=== PATIENT | male | born 1945 | race African-American/Black ===

== ENCOUNTER 2023-11-20 18:33 | Emergency (ER) | payer MEDICARE, OTHER, SELFPAY ==
[2023-11-20] VITALS (8 sets, daily range): BP systolic 166–223; BP diastolic 72–105; BMI 38.9
[2023-11-20 21:04] LABS: % Basophils 1.1 % (0-2); % Eosinophils 1.1 % (0-6); % Immature Granulocytes 0.4 % (0-0.5); % Lymphocytes 37.8 % (20.5-51.1); % Monocytes 11.5 % (1.7-9.3); % Neutrophils 48.1 % (42.2-75.2); Absolute Basophils 0.1 10^3/uL (0-0.2); Absolute Eosinophils 0.1 10^3/uL (0-0.7); Absolute Lymphocytes 2.1 10^3/uL (1.2-3.4); Absolute Monocytes 0.6 10^3/uL (0.1-0.6); Absolute Neutrophils 2.6 10^3/uL (1.4-6.5); Hematocrit 41.8 % (39.0-52.0); Hemoglobin 14.8 g/dL (13.0-18.0); Mean Corp Hgb Conc. 35.4 g/dL (33.0-37.0); Mean Corpuscular Volume 90.5 fL (80.0-94.0); Mean Platelet Volume 9.7 fL (7.4-10.4); Nucleated Red Blood Cells % 0 % (-); Platelet Count 155 10^3/uL (130-400); Red Blood Cell Count 4.62 10^6/uL (4.70-6.10); Red Cell Dist. Width 12.8 % (11.5-14.5); White Blood Cell Count 5.5 10^3/uL (4.8-10.8)
[2023-11-20 21:15] LABS: ALT (SGPT) 26 U/L (0-50); AST (SGOT) 30 U/L (17-59); Alkaline Phosphatase 75 U/L (38-126); Blood Urea Nitrogen 10 mg/dl (9-20); Calcium 9.3 mg/dl (8.4-10.2); Carbon Dioxide 23 mmol/L (22-30); Chloride 107 mmol/L (98-107); Estimated Creatinine Clearance > 125 ml/min; Glucose 108 mg/dl (70-99); Potassium 3.9 mmol/L (3.5-5.1); Sodium 135 mmol/L (135-145); Total Bilirubin 1.1 mg/dl (0.2-1.3); Total Protein 7.4 g/dl (6.3-8.2); eGFR > 60.00
--- NOTE | 2023-11-20 22:17 | ED.GENMED ---
History of Present Illness
General
Chief Complaint: Blood Pressure Problem
Source: patient
Time Seen by Provider: 11/20/23 22:04
Travel History
Have you had any contact with someone who has COVID-19?: No
Do you have any symptoms of coronavirus? Fever > 100 degrees, chills, cough, shortness of breath, sore throat, loss of taste or smell, muscle aches, or headache?: No
History of Present Illness
History of Present Illness:
78-year-old male presents to the emergency room complaining of mild headache this morning prompting him to take his blood pressure. He noted it was quite high in the 200s. Patient is on multiple medications for blood pressure. He has run out of
his amlodipine 5 mg. He has not had for the past 2 days. Aside from a mild headache patient denies any associated symptoms such as chest pain, shortness of breath, back pain or abdominal pain.
Past History
Past History
ED Past Medical History: HTN, Hypercholesterolemia, Other (Crohn's disease, BPH, degenerative joint disease, chronic back pain on vicodin) and Other (BPH, divertic, crohns)
ED Past Surgical History: Bowel resection, Orthopedic (Bilateral hip replacements, left rotator cuff repair) and Other (TURP)
Social History
Tobacco: Non-smoker
Alcohol: None
Personal:
Living: with family
Employment: Retired
Family History
Family History: Diabetes and CAD
Phy Exam
Physical Exam
Physical Exam:
General: Awake, Alert, Oriented X3. No acute distress.
Vitals: Hypertensive
Head: Atraumatic
Eyes: Pupils equal, EOMI
Throat: Airway intact, no exudates
Neck: Trachea midline
Lungs: Clear and equal b/l
Heart: Regular rate, no murmurs
Abd: Soft, Nontender, No pulsatile mass
Neuro: Nonfocal
Skin: Warm, dry, no rash
Extremities: pulses equal b/l, trace edema
Course
Orders/Labs/Results
Orders:
Orders
11/20/23 20:27
ECG [Electrocardiogram (*1)] Urgent
Reason for Study: Hypertension, Benign
Cardiology Consult: Unknown
EKG- Treatment ONCE
11/20/23 20:55
Complete Blood Count/With Diff Urgent
Comprehensive Metabolic Panel Urgent
11/20/23 22:19
Amlodipine [Norvasc] 5 mg PO NOW STA
11/21/23 00:06
HydrALAZINE [Apresoline] 10 mg PO NOW STA
Abnormal Lab Results
11/20/23
20:55
RBC 4.62 L 10^6/uL
(4.70-6.10)
MCH 32.0 H pg
(27.0-31.0)
Monocytes % 11.5 H %
(1.7-9.3)
Creatinine 0.6 L mg/dL
(0.7-1.3)
Glucose 108 H mg/dl
(70-99)
11/20/23 20:55
11/20/23 20:55
Vital Signs
Initial and Last Documented VS:
Initial Vital Signs
Temp Pulse Resp BP Pulse Ox
97.9 F 58 18 223/91 96
11/20/23 18:49 11/20/23 18:49 11/20/23 18:49 11/20/23 18:49 11/20/23 18:49
Last Documented Vital Signs
Temp Pulse Resp BP Pulse Ox
97.8 F 71 20 188/71 96
11/20/23 20:32 11/21/23 01:00 11/21/23 01:00 11/21/23 01:00 11/21/23 01:00
MDM/Problems Addressed
Differential Diagnosis Includes:
Poorly controlled hypertension, medication noncompliance, progressive renal disease
MDM/Problems Addressed:
Patient's blood pressure quite elevated. As it turns out he has run out of his amlodipine. He has not taken it for the past 2 or 3 days at least. Norvasc was given which did bring his pressure down some but we also gave a dose of hydralazine p.o.
Prescription for 1 week worth of Norvasc sent as the patient does anticipate delivery from his mail-in pharmacy by that time. No evidence for any end-organ damage.
Chronic conditions affecting care: HTN
*Pulse Oximetry
Patient hypoxic: no
*EKG
Interpreted by ED Provider?: Yes
Interpretation: normal
Heart Rate: 60
Rate: normal
Rhythm: sinus
Toxey: normal axis
Interval: normal interval
QRS Pattern: normal QRS
Ischemia: no ischemia
*Sanding Machine Operator Interpretation
Rate: normal
Interpretation: normal
Rhythm: sinus
*Critical Care Note
Total Time (30-74mins, 75-104mins- exclusive of procedures): Not Applicable
ED Attending Note
-
Portions of this chart may have been created with voice recognition software.� Occasional wrong word or��sound alike� substitutions may have occurred due to the inherent limitations of voice recognition software.
Discharge Plan
Departure
Patient Disposition: Home (Routine Discharge)
Date of Disposition: 11/21/23
Time of Disposition: 01:08
Patient with high blood pressure during this ER visit?: Yes
Discharge Problem:
Hypertension
Instructions: High Blood Pressure (DC)
Prescriptions:
New
amlodipine [Norvasc] 5 mg tablet
5 mg PO DAILY Qty: 7 0RF
No Action
carvedilol [Coreg] 25 MG tablet
25 mg PO DAILY
sulfasalazine 500 MG tablet
1,000 mg PO TID
atorvastatin 10 MG tablet
10 mg PO QPM
hydrocodone-acetaminophen 1 EACH tablet
1 ea PO TIDPRN PRN (Reason: pain)
chlorthalidone 25 MG tablet
25 mg PO BID
aspirin 81 MG tablet,chewable
81 mg PO DAILY
losartan [Cozaar] 100 MG tablet
100 mg PO DAILY
cholecalciferol (vitamin D3) 2,000 UNITS tablet
2,000 unit PO BID
oseltamivir 75 MG capsule
75 mg PO BID Qty: 8 0RF
Referrals:
Costa Finnegan MD [Family Provider] -
Interventions
Interventions:
*Risk Screen - Suicide Last Done: 11/20/23 18:49
*General Assessment Last Done: 11/20/23 20:32
*Neglect/Abuse Screening Last Done: 11/20/23 18:49
*ED COVID-19 Vaccine History Last Done: 11/20/23 18:49
*Nursing Disposition Last Done: 11/21/23 01:38
ED- Cardiac Assessment Last Done: 11/20/23 20:45
ED- Neurological Assessment Last Done: 11/20/23 20:45
ED- Pulmonary Assessment Last Done: 11/20/23 20:45
[2023-11-20] MEDS: NORVASC 5 MG PO (22:36)
[2023-11-21] VITALS: BP 213/84
[2023-11-21] MEDS: APRESOLINE 10 MG PO (00:11)
[2023-11-21 00:53] VITALS: BP 191/77
[2023-11-21 01:00] VITALS: BP 188/71
== END 2023-11-21 01:38 | disposition home or self-care (01) ==
LOC: EMR 18:33
PROVIDERS: Student in an Organized Health Care Education/Training Program; EMERGENCY PHYSICIAN Emergency Medicine; FAMILY PHYSICIAN Internal Medicine
DX: I10 Essential (primary) hypertension (principal)
CPT/HCPCS: 99284; 80053; 85025; 93005

== ENCOUNTER 2023-11-23 03:09 | Emergency (ER) | payer MEDICARE, OTHER, SELFPAY ==
[2023-11-23 03:11] VITALS: BP 161/67; BMI 37.8
[2023-11-23 03:16] VITALS: BP 161/67
[2023-11-23 04:00] VITALS: BP 154/68
--- NOTE | 2023-11-23 04:10 | ED.GENMED ---
History of Present Illness
General
Chief Complaint: Blood Pressure Problem
Source: patient, ambulance crew and previous hospital records (ED visit November 20 for very similar complaint.)
Exam Limitations: none
Time Seen by Provider: 11/23/23 03:39
Nursing documentation reviewed up to this point in time: agreed with
Travel History
Have you had any contact with someone who has COVID-19?: No
Do you have any symptoms of coronavirus? Fever > 100 degrees, chills, cough, shortness of breath, sore throat, loss of taste or smell, muscle aches, or headache?: No
History of Present Illness
History of Present Illness:
This is an 78-year-old gentleman who resides at home, independently. He has longstanding history of hypertension maintained on several antihypertensive medications.
He was evaluated in this ED November 20 with complaints of elevated blood pressure accompanied with very mild headache and at that time admitted that he had inadvertently run out of his amlodipine 3 days prior. Mail order amlodipine is reportedly en
route and he should receive this sometime this week.
During that ED visit initial blood pressure reportedly 223/91. After an oral dose of amlodipine 5 mg along with an oral dose of hydralazine 10 mg, blood pressure trended down to 188/71.
A 1 week prescription for amlodipine 5 mg was provided.
Laboratory studies during that ED visit all within normal limits. EKG was unremarkable as well.
Patient states his blood pressure generally runs in the 140s to 150s over 70s to 80s.
He returns via EMS tonight when he was concerned with elevated blood pressure again at 200 systolic using his home BP cuff.
He is overall feeling well, denies headache, no chest pain or coughing or shortness of breath, no dizziness nor lightheadedness.
Upon EMS arrival, blood pressure reportedly 160 systolic and it was noted by EMS staff that patient's home blood pressure cuff is too small for his arm.
Patient states he has an appointment scheduled with his primary care physician this week.
Past History
Past History
ED Past Medical History: HTN, Hypercholesterolemia, Other (Crohn's disease, BPH, degenerative joint disease, chronic back pain on vicodin) and Other (BPH, divertic, crohns)
ED Past Surgical History: Bowel resection, Orthopedic (Bilateral hip replacements, left rotator cuff repair) and Other (TURP)
Social History
Tobacco: Non-smoker
Alcohol: None
Personal:
Living: with family
Employment: Retired
Family History
Family History: Diabetes and CAD
Phy Exam
Physical Exam
Physical Exam:
GENERAL: 78-year-old gentleman appears somewhat younger than stated age, he is bright and alert, pleasant, appears in no acute distress. Reading an E-book on his cell phone.
EYE: pupils equal and reactive. anicteric
NECK: Supple, nontender, no meningismus, no significant adenopathy.
ENT: oral mucosa is moist. No rhinorrhea.
CARDIAC: Regular rate and rhythm. no murmur.
LUNGS: Clear breath sounds bilaterally, no acute respiratory distress, no wheezes/rales/rhonchi
ABDOMEN: Soft, nondistended, without focal tenderness, normoactive BS.
NEUROLOGICAL: Alert and oriented x3, no focal neuro deficits. Gait is steady.
SKIN: Warm and dry, normal color, skin intact. No rash.
MUSCULOSKELETAL: No C/C/E. peripheral pulses are full and equal b/l. No palpable tenderness.
PSYCH: Normal and appropriate interaction.
Course
Vital Signs
Initial and Last Documented VS:
Initial Vital Signs
Temp Pulse Resp BP Pulse Ox
97.7 F 66 24 161/67 96
11/23/23 03:11 11/23/23 03:11 11/23/23 03:11 11/23/23 03:11 11/23/23 03:11
Last Documented Vital Signs
Temp Pulse Resp BP Pulse Ox
97.7 F 62 18 154/68 92
11/23/23 03:11 11/23/23 04:00 11/23/23 04:00 11/23/23 04:00 11/23/23 04:00
MDM/Problems Addressed
Differential Diagnosis Includes:
Patient with known history of hypertension presents with elevated blood pressure recorded on home BP cuff.
BP improved upon EMS arrival and has improved since arrival to the ED.
Initial blood pressure 161/67, has improved to 154/68 which appears to be near or at patient's baseline.
We did discuss that ideally systolic blood pressure should be in the 120s with diastolic less than 85.
Overall well in appearance.
Unremarkable laboratory studies as well as EKG November 20. Nothing to indicate end-organ damage.
He may be getting erroneously elevated readings with an ill fitting BP cuff and recommend he purchase a home BP monitor with large arm cuff.
I also recommend prompt follow-up with PCP for recheck and to take his blood pressure monitor with him at his next office visit to assess reliability.
At this point no indication to repeat laboratory studies nor imaging.
Continue current medications and follow-up with PCP as already scheduled.
Chronic conditions affecting care: HTN
*Pulse Oximetry
Patient hypoxic: no
*Payroll Accountant Interpretation
Rate: normal
Interpretation: normal
Rhythm: sinus
*Critical Care Note
Total Time (30-74mins, 75-104mins- exclusive of procedures): Not Applicable
ED Attending Note
-
Portions of this chart may have been created with voice recognition software.� Occasional wrong word or��sound alike� substitutions may have occurred due to the inherent limitations of voice recognition software.
Discharge Plan
Departure
Patient Disposition: Home (Routine Discharge)
Date of Disposition: 11/23/23
Time of Disposition: 04:10
Patient with high blood pressure during this ER visit?: No
Condition: Good
Discharge Problem:
Accelerated essential hypertension
Instructions: High Blood Pressure (DC)
Prescriptions:
No Action
carvedilol [Coreg] 25 MG tablet
25 mg PO DAILY
sulfasalazine 500 MG tablet
1,000 mg PO TID
atorvastatin 10 MG tablet
10 mg PO QPM
hydrocodone-acetaminophen 1 EACH tablet
1 ea PO TIDPRN PRN (Reason: pain)
chlorthalidone 25 MG tablet
25 mg PO BID
aspirin 81 MG tablet,chewable
81 mg PO DAILY
losartan [Cozaar] 100 MG tablet
100 mg PO DAILY
cholecalciferol (vitamin D3) 2,000 UNITS tablet
2,000 unit PO BID
oseltamivir 75 MG capsule
75 mg PO BID Qty: 8 0RF
amlodipine [Norvasc] 5 mg tablet
5 mg PO DAILY Qty: 7 0RF
Referrals:
Costa Finnegan MD [Family Provider] - Call in 1-3 days for appt
Activity Restrictions/Additional Instructions:
Touch base with your primary care physician this week for blood pressure recheck. Take your home blood pressure monitor with you to that appointment to assess its reliability.
We do recommend a large arm cuff for more accurate blood pressure reading.
Interventions
Interventions:
*Risk Screen - Suicide Last Done: 11/23/23 03:11
*General Assessment Last Done: 11/23/23 03:11
ED- Fall Risk Assessment Last Done: 11/23/23 04:08
*ED COVID-19 Vaccine History Last Done: 11/23/23 03:11
ED- Cardiac Assessment Last Done: 11/23/23 04:08
ED- Neurological Assessment Last Done: 11/23/23 04:08
ED- Pulmonary Assessment Last Done: 11/23/23 04:08
== END 2023-11-23 04:44 | disposition home or self-care (01) ==
LOC: EMR 03:09
PROVIDERS: EMERGENCY PHYSICIAN Emergency Medicine; FAMILY PHYSICIAN Internal Medicine
DX: I10 Essential (primary) hypertension (principal)
CPT/HCPCS: 99283

== ENCOUNTER → 2024-01-06 09:20 | Outpatient (REF) | payer MEDICARE, OTHER, SELFPAY ==
[2024-01-06 12:17] LABS: Urine Albumin Trace (Neg - Trace); Urine Bilirubin 1+ (Negative); Urine Character Clear (Clear); Urine Color Yellow; Urine Glucose Negative (Negative); Urine Ketone Negative (Negative); Urine Leukocyte Negative (Negative); Urine Nitrite Negative (Negative); Urine Occult Blood Negative (Negative); Urine Specific Gravity 1.015 (<1.030); Urine Urobilinogen Negative (Neg - 1+); Urine pH 6.5 (5.0-9.0)
[2024-01-06 12:42] LABS: ALT (SGPT) 20 U/L (0-50); AST (SGOT) 22 U/L (17-59); Albumin 4.2 g/dl (3.5-5.0); Alkaline Phosphatase 62 U/L (38-126); Blood Urea Nitrogen 13 mg/dl (9-20); Calcium 9.5 mg/dl (8.4-10.2); Carbon Dioxide 25 mmol/L (22-30); Chloride 105 mmol/L (98-107); Glucose 111 mg/dl (70-99); HDL Cholesterol 44 mg/dl; LDL Cholesterol, Calculated 77 mg/dl; Sodium 139 mmol/L (135-145); Total Cholesterol 132 mg/dl (50-199); Total Protein 7.2 g/dl (6.3-8.2); Triglyceride 59 mg/dl (10-149); Very Low Density Lipoprotein 11 mg/dl (0-30); eGFR > 60.00
[2024-01-06 12:46] LABS: Vitamin D, 25-OH*** 33.5 ng/mL (30-80)
[2024-01-06 12:48] LABS: % Basophils 0.5 % (0-2); % Eosinophils 0.5 % (0-6); % Immature Granulocytes 0.4 % (0-0.5); % Lymphocytes 24.7 % (20.5-51.1); % Monocytes 7.5 % (1.7-9.3); % Neutrophils 66.4 % (42.2-75.2); Absolute Lymphocytes 1.8 10^3/uL (1.2-3.4); Absolute Monocytes 0.6 10^3/uL (0.1-0.6); Absolute Neutrophils 4.9 10^3/uL (1.4-6.5); Hematocrit 42.1 % (39.0-52.0); Hemoglobin 14.1 g/dL (13.0-18.0); Mean Corp Hgb Conc. 33.5 g/dL (33.0-37.0); Mean Corpuscular Hgb 30.9 pg (27.0-31.0); Mean Corpuscular Volume 92.3 fL (80.0-94.0); Mean Platelet Volume 10.5 fL (7.4-10.4); Nucleated Red Blood Cells % 0 % (-); Platelet Count 178 10^3/uL (130-400); Red Blood Cell Count 4.56 10^6/uL (4.70-6.10); Red Cell Dist. Width 13.3 % (11.5-14.5); White Blood Cell Count 7.5 10^3/uL (4.8-10.8)
[2024-01-06 12:59] LABS: PSA, Total - Diagnostic 1.87 ng/ml (0.0-4.0)
[2024-01-06 14:30] LABS: Glycohemoglobin (HgbA1c) 5.3 % (4.0-5.6)
== END ==
LOC: HWLAB 09:20
PROVIDERS: ATTENDING PHYSICIAN Internal Medicine; FAMILY PHYSICIAN Internal Medicine; REFERRING PHYSICIAN Internal Medicine Interventional Cardiology
DX: I10 Essential (primary) hypertension (principal); R04.0 Epistaxis; K50.119 Crohn's disease of large intestine with unspecified complications; N40.1 Benign prostatic hyperplasia with lower urinary tract symptoms; N13.8 Other obstructive and reflux uropathy; E78.2 Mixed hyperlipidemia; R73.9 Hyperglycemia, unspecified
CPT/HCPCS: 36415; 80053; 80061; 81003; 82306; 83036; 84153; 84443; 85025

== ENCOUNTER → 2024-01-27 14:43 | Outpatient (REF) | payer MEDICARE, OTHER, SELFPAY | LOC: RAD 14:43 | PROVIDERS: ATTENDING PHYSICIAN Internal Medicine Interventional Cardiology; FAMILY PHYSICIAN Internal Medicine | DX: N28.9 Disorder of kidney and ureter, unspecified (principal); I10 Essential (primary) hypertension | CPT/HCPCS: 93975 ==

== ENCOUNTER → 2024-03-08 08:09 | Outpatient (REF) | payer MEDICARE, OTHER, SELFPAY ==
[2024-03-08 09:49] LABS: Blood Urea Nitrogen 11 mg/dl (9-20); Calcium 9.3 mg/dl (8.4-10.2); Carbon Dioxide 25 mmol/L (22-30); Chloride 106 mmol/L (98-107); Glucose 111 mg/dl (70-99); Potassium 3.9 mmol/L (3.5-5.1); Sodium 139 mmol/L (135-145); eGFR > 60.00
== END ==
LOC: HWLAB 08:09
PROVIDERS: ATTENDING PHYSICIAN Specialist; FAMILY PHYSICIAN Internal Medicine
DX: I10 Essential (primary) hypertension (principal)
CPT/HCPCS: 36415; 80048

== ENCOUNTER → 2024-04-12 08:15 | Outpatient (REF) | payer MEDICARE, OTHER, SELFPAY ==
[2024-04-12 10:06] LABS: Blood Urea Nitrogen 17 mg/dl (9-20); Calcium 9.8 mg/dl (8.4-10.2); Carbon Dioxide 23 mmol/L (22-30); Chloride 104 mmol/L (98-107); Glucose 111 mg/dl (70-99); Potassium 4.3 mmol/L (3.5-5.1); Sodium 138 mmol/L (135-145); eGFR > 60.00
== END ==
LOC: HWLAB 08:15
PROVIDERS: ATTENDING PHYSICIAN Specialist; FAMILY PHYSICIAN Internal Medicine
DX: I10 Essential (primary) hypertension (principal)
CPT/HCPCS: 36415; 80048

== ENCOUNTER → 2024-05-19 06:46 | Outpatient (REF) | payer MEDICARE, OTHER, SELFPAY | LOC: RAD 06:46 | PROVIDERS: ATTENDING PHYSICIAN Specialist; FAMILY PHYSICIAN Internal Medicine | DX: I10 Essential (primary) hypertension (principal) | CPT/HCPCS: 93931 ==

== ENCOUNTER → 2024-08-02 10:14 | Outpatient (REF) | payer MEDICARE, OTHER, SELFPAY ==
[2024-08-02 13:45] LABS: Blood Urea Nitrogen 11 mg/dl (9-20); Calcium 9.5 mg/dl (8.4-10.2); Carbon Dioxide 28 mmol/L (22-30); Chloride 104 mmol/L (98-107); Glucose 102 mg/dl (70-99); Potassium 3.6 mmol/L (3.5-5.1); Sodium 143 mmol/L (135-145); eGFR > 60.00
== END ==
LOC: HWLAB 10:14
PROVIDERS: ATTENDING PHYSICIAN Specialist; FAMILY PHYSICIAN Internal Medicine
DX: I10 Essential (primary) hypertension (principal)
CPT/HCPCS: 36415; 80048

== ENCOUNTER → 2024-08-11 09:00 | Outpatient (REF) | payer MEDICARE, OTHER, SELFPAY ==
[2024-08-11 12:46] LABS: PSA, Total - Diagnostic 1.65 ng/ml (0.0-4.0)
== END ==
LOC: HWLAB 09:00
PROVIDERS: ATTENDING PHYSICIAN Urology; FAMILY PHYSICIAN Internal Medicine
DX: N40.1 Benign prostatic hyperplasia with lower urinary tract symptoms (principal)
CPT/HCPCS: 84153

== ENCOUNTER → 2024-11-23 10:26 | Outpatient (REF) | payer MEDICARE, OTHER, SELFPAY ==
[2024-11-23 15:17] LABS: Blood Urea Nitrogen 10 mg/dl (9-20); Calcium 9.4 mg/dl (8.4-10.2); Carbon Dioxide 25 mmol/L (22-30); Chloride 103 mmol/L (98-107); Glucose 90 mg/dl (70-99); HDL Cholesterol 48 mg/dl; LDL Cholesterol, Calculated 75 mg/dl; Sodium 138 mmol/L (135-145); Total Cholesterol 132 mg/dl (50-199); Triglyceride 47 mg/dl (10-149); Very Low Density Lipoprotein 9 mg/dl (0-30); eGFR > 60.00
== END ==
LOC: HWLAB 10:26
PROVIDERS: ATTENDING PHYSICIAN Internal Medicine Interventional Cardiology; FAMILY PHYSICIAN Internal Medicine; REFERRING PHYSICIAN Specialist
DX: E78.2 Mixed hyperlipidemia (principal); I10 Essential (primary) hypertension; N28.9 Disorder of kidney and ureter, unspecified
CPT/HCPCS: 36415; 80048; 80061

== ENCOUNTER → 2025-01-23 12:19 | Outpatient (REF) | payer MEDICARE, OTHER, SELFPAY ==
[2025-01-23 16:43] LABS: Blood Urea Nitrogen 8 mg/dl (9-20); Calcium 9.4 mg/dl (8.4-10.2); Carbon Dioxide 27 mmol/L (22-30); Chloride 107 mmol/L (98-107); Glucose 94 mg/dl (70-99); Potassium 4.1 mmol/L (3.5-5.1); Sodium 142 mmol/L (135-145); eGFR > 60.00
== END ==
LOC: HWLAB 12:19
PROVIDERS: ATTENDING PHYSICIAN Specialist; FAMILY PHYSICIAN Internal Medicine
DX: I10 Essential (primary) hypertension (principal); E03.9 Hypothyroidism, unspecified; E78.2 Mixed hyperlipidemia
CPT/HCPCS: 36415; 80048

== ENCOUNTER → 2025-02-17 08:13 | Outpatient (REF) | payer MEDICARE, OTHER, SELFPAY ==
[2025-02-17 09:12] LABS: % Basophils 0.5 % (0-2); % Eosinophils 1.2 % (0-6); % Immature Granulocytes 0.3 % (0-0.5); % Lymphocytes 25.1 % (20.5-51.1); % Monocytes 10.7 % (1.7-9.3); % Neutrophils 62.2 % (42.2-75.2); Absolute Eosinophils 0.1 10^3/uL (0-0.7); Absolute Lymphocytes 1.5 10^3/uL (1.2-3.4); Absolute Monocytes 0.6 10^3/uL (0.1-0.6); Absolute Neutrophils 3.7 10^3/uL (1.4-6.5); Hematocrit 37.6 % (39.0-52.0); Hemoglobin 12.8 g/dL (13.0-18.0); Mean Corpuscular Hgb 31.8 pg (27.0-31.0); Mean Corpuscular Volume 93.5 fL (80.0-94.0); Nucleated Red Blood Cells % 0 % (-); Platelet Count 167 10^3/uL (130-400); Red Blood Cell Count 4.02 10^6/uL (4.70-6.10); Red Cell Dist. Width 13.2 % (11.5-14.5); White Blood Cell Count 5.9 10^3/uL (4.8-10.8)
== END ==
LOC: REG 08:13
PROVIDERS: ATTENDING PHYSICIAN Internal Medicine
DX: J98.4 Other disorders of lung (principal)
CPT/HCPCS: 36415; 71046; 85025

== ENCOUNTER 2025-03-14 09:00 | Outpatient (RCR) | payer MEDICARE, OTHER, SELFPAY | END 2025-03-17 10:41 | disposition home or self-care (01) | LOC: PURB 09:00 | PROVIDERS: ATTENDING PHYSICIAN Internal Medicine; FAMILY PHYSICIAN Internal Medicine | DX: J44.9 Chronic obstructive pulmonary disease, unspecified (principal); J98.4 Other disorders of lung | CPT/HCPCS: G0237 ==

== ENCOUNTER 2025-04-13 09:30 | Outpatient (RCR) | payer MEDICARE, OTHER, SELFPAY | END 2025-04-17 09:38 | disposition home or self-care (01) | LOC: PURB 09:30 | PROVIDERS: ATTENDING PHYSICIAN Internal Medicine; FAMILY PHYSICIAN Internal Medicine | DX: J44.9 Chronic obstructive pulmonary disease, unspecified (principal); J98.4 Other disorders of lung | CPT/HCPCS: G0239 ==

== ENCOUNTER → 2025-05-01 12:17 | Outpatient (REF) | payer MEDICARE, OTHER, SELFPAY ==
[2025-05-01 16:13] LABS: Hematocrit 34.7 % (39.0-52.0); Hemoglobin 11.6 g/dL (13.0-18.0); Mean Corp Hgb Conc. 33.4 g/dL (33.0-37.0); Mean Corpuscular Volume 94.3 fL (80.0-94.0); Nucleated Red Blood Cells % 0 % (-); Platelet Count 155 10^3/uL (130-400); Red Cell Dist. Width 13.4 % (11.5-14.5)
[2025-05-01 16:27] LABS: Blood Urea Nitrogen 9 mg/dl (9-20); Calcium 9.3 mg/dl (8.4-10.2); Carbon Dioxide 28 mmol/L (22-30); Chloride 108 mmol/L (98-107); Glucose 97 mg/dl (70-99); Potassium 3.9 mmol/L (3.5-5.1); Sodium 138 mmol/L (135-145); eGFR > 60.00
[2025-05-01 20:37] LABS: Microalbumin, Random Urine 0.9 mg/dl (0.6-1.7)
[2025-05-02 09:08] LABS: Microalb - Urine Creatinine 134.600 mg/dl
== END ==
LOC: HWLAB 12:17
PROVIDERS: ATTENDING PHYSICIAN Specialist; FAMILY PHYSICIAN Internal Medicine
DX: I10 Essential (primary) hypertension (principal); N28.9 Disorder of kidney and ureter, unspecified
CPT/HCPCS: 36415; 80048; 82043; 82570; 85025

== ENCOUNTER 2025-05-18 09:30 | Outpatient (RCR) | payer MEDICARE, OTHER, SELFPAY | END 2025-05-18 23:59 | disposition home or self-care (01) | LOC: PURB 09:30 | PROVIDERS: ATTENDING PHYSICIAN Internal Medicine; FAMILY PHYSICIAN Internal Medicine | DX: J44.9 Chronic obstructive pulmonary disease, unspecified (principal); J98.4 Other disorders of lung; R06.09 Other forms of dyspnea; R06.83 Snoring; G47.19 Other hypersomnia; Z87.891 Personal history of nicotine dependence | CPT/HCPCS: G0239 ==

== ENCOUNTER 2025-06-06 09:30 | Outpatient (RCR) | payer MEDICARE, OTHER, SELFPAY | END 2025-06-07 09:52 | disposition home or self-care (01) | LOC: PURB 09:30 | PROVIDERS: ATTENDING PHYSICIAN Internal Medicine; FAMILY PHYSICIAN Internal Medicine | DX: J44.9 Chronic obstructive pulmonary disease, unspecified (principal); R06.09 Other forms of dyspnea; J98.4 Other disorders of lung; R06.83 Snoring; G47.19 Other hypersomnia; Z87.891 Personal history of nicotine dependence | CPT/HCPCS: G0239 ==

== ENCOUNTER → 2025-07-03 08:13 | Outpatient (REF) | payer MEDICARE, OTHER, SELFPAY ==
[2025-07-03 10:53] LABS: Hematocrit 36.3 % (39.0-52.0); Hemoglobin 12.0 g/dL (13.0-18.0); Mean Corp Hgb Conc. 33.1 g/dL (33.0-37.0); Mean Corpuscular Volume 96.0 fL (80.0-94.0); Nucleated Red Blood Cells % 0 % (-); Platelet Count 157 10^3/uL (130-400); Red Cell Dist. Width 13.1 % (11.5-14.5)
[2025-07-03 11:04] LABS: Blood Urea Nitrogen 8 mg/dl (9-20); Calcium 9.3 mg/dl (8.4-10.2); Carbon Dioxide 28 mmol/L (22-30); Chloride 107 mmol/L (98-107); Glucose 98 mg/dl (70-99); Potassium 4.0 mmol/L (3.5-5.1); Sodium 141 mmol/L (135-145); eGFR > 60.00
== END ==
LOC: HWRAD 08:13
PROVIDERS: ATTENDING PHYSICIAN Specialist; FAMILY PHYSICIAN Internal Medicine
DX: I10 Essential (primary) hypertension (principal); N28.9 Disorder of kidney and ureter, unspecified; I25.118 Atherosclerotic heart disease of native coronary artery with other forms of angina pectoris; K50.119 Crohn's disease of large intestine with unspecified complications; M54.16 Radiculopathy, lumbar region
CPT/HCPCS: 36415; 72110; 80048; 85025

== ENCOUNTER → 2025-08-01 10:43 | Outpatient (REF) | payer MEDICARE, OTHER, SELFPAY ==
[2025-08-01 13:21] LABS: PSA, Total - Diagnostic 1.33 ng/ml (0.0-4.0)
== END ==
LOC: HWLAB 10:43
PROVIDERS: ATTENDING PHYSICIAN Urology; FAMILY PHYSICIAN Internal Medicine; OTHER PHYSICIAN Specialist; REFERRING PHYSICIAN Internal Medicine Interventional Cardiology
DX: N40.1 Benign prostatic hyperplasia with lower urinary tract symptoms (principal)
CPT/HCPCS: 36415; 84153

== ENCOUNTER → 2025-08-03 20:22 | Outpatient (REF) | payer MEDICARE, OTHER, SELFPAY | LOC: MRI 20:22 | PROVIDERS: ATTENDING PHYSICIAN Internal Medicine | DX: M54.16 Radiculopathy, lumbar region (principal) | CPT/HCPCS: 72148 ==

== ENCOUNTER → 2025-09-01 07:52 | Outpatient (REF) | payer MEDICARE, OTHER, SELFPAY ==
[2025-09-01 10:07] LABS: ALT (SGPT) 16 U/L (0-50); AST (SGOT) 18 U/L (17-59); Albumin 3.9 g/dl (3.5-5.0); Alkaline Phosphatase 55 U/L (38-126); Blood Urea Nitrogen 9 mg/dl (9-20); Calcium 9.2 mg/dl (8.4-10.2); Carbon Dioxide 29 mmol/L (22-30); Chloride 106 mmol/L (98-107); Glucose 97 mg/dl (70-99); HDL Cholesterol 49 mg/dl; LDL Cholesterol, Calculated 60 mg/dl; Potassium 3.9 mmol/L (3.5-5.1); Sodium 136 mmol/L (135-145); Total Protein 7.2 g/dl (6.3-8.2); Very Low Density Lipoprotein 8 mg/dl (0-30); eGFR > 60.00
== END ==
LOC: HWRAD 07:52
PROVIDERS: ATTENDING PHYSICIAN Urology; FAMILY PHYSICIAN Internal Medicine; OTHER PHYSICIAN Internal Medicine Interventional Cardiology; REFERRING PHYSICIAN Specialist
DX: R31.1 Benign essential microscopic hematuria (principal); I10 Essential (primary) hypertension; E78.2 Mixed hyperlipidemia
CPT/HCPCS: 36415; 76775; 80053; 80061

== ENCOUNTER 2025-09-15 03:28 | Inpatient (IN) | payer MEDICARE, OTHER, SELFPAY ==
[2025-09-14 23:14] VITALS: BP 188/70
[2025-09-14 23:16] VITALS: BMI 31.2
[2025-09-14 23:33] LABS: Hematocrit 35.5 % (39.0-52.0); Hemoglobin 12.1 g/dL (13.0-18.0); Mean Corp Hgb Conc. 34.1 g/dL (33.0-37.0); Mean Corpuscular Volume 91.0 fL (80.0-94.0); Nucleated Red Blood Cells % 0 % (-); Platelet Count 174 10^3/uL (130-400); Red Cell Dist. Width 13.2 % (11.5-14.5)
[2025-09-14 23:54] LABS: ALT (SGPT) 17 U/L (0-50); AST (SGOT) 29 U/L (17-59); Albumin 4.1 g/dl (3.5-5.0); Alkaline Phosphatase 53 U/L (38-126); Blood Urea Nitrogen 13 mg/dl (9-20); Calcium 9.3 mg/dl (8.4-10.2); Carbon Dioxide 26 mmol/L (22-30); Chloride 107 mmol/L (98-107); Estimated Creatinine Clearance 96 ml/min; Glucose 135 mg/dl (70-99); Lipase 22 U/L (23-300); Potassium 4.0 mmol/L (3.5-5.1); Sodium 137 mmol/L (135-145); Total Protein 7.6 g/dl (6.3-8.2); eGFR > 60.00
--- NOTE | 2025-09-14 23:59 | ED.GENMED ---
History of Present Illness
General
Chief Complaint: Flank Pain
Source: patient
Exam Limitations: none
Time Seen by Provider: 09/14/25 23:30
Nursing documentation reviewed up to this point in time: agreed with
History of Present Illness
History of Present Illness:
Patient with history of Crohn's disease with bowel resection, presents ED secondary to persistent left-sided abdominal pain associated with nausea and vomiting, started approxi-5 hours ago, while he was at home. Abdominal pain described as sharp,
located along left flank/back, radiating to the front, without any alleviating or exacerbating factors. Denies trauma. Denies fever or chills. Denies diarrhea. Denies previous history of similar symptoms. Denies recent change bowel habits.
Denies recent illness. Denies recent change in medications or diet. Denies difficulty with urination. Denies previous history of kidney stones.
Past History
Past History
ED Past Medical History: HTN, Hypercholesterolemia, Other (Crohn's disease, BPH, degenerative joint disease, chronic back pain on vicodin) and Other (BPH, divertic, crohns)
ED Past Surgical History: Bowel resection, Orthopedic (Bilateral hip replacements, left rotator cuff repair) and Other (TURP)
Social History
Tobacco: Non-smoker
Alcohol: None
Personal:
Living: with family
Employment: Retired
Family History
Family History: Diabetes and CAD
Review of Systems
Review of Systems
Allergies reviewed?: Yes
All Other Systems: ROS reviewed and negative except as documented in HPI and ROS
Constitutional: Reports no symptoms
Respiratory: Reports no symptoms
Cardiac: Reports no symptoms
ABD/GI: Reports abdominal pain, nausea and vomiting
Musculoskeletal: Reports no symptoms
Skin: Reports no symptoms
Neurological: Reports no symptoms
Phy Exam
Physical Exam
Physical Exam:
Physical Exam
General: mild painful distress, not acutely ill. afebrile
Head: nc/at. eomi
Neck: supple. normal range of motion
Heart: s1/s2 regular rate and rhythm
Lungs: no acute respiratory distress. clear bilaterally
Abdomen: normal bowel sounds. no distention. mild left sided abdominal tenderness to palpation
Neuro: alert and oriented x 3. no focal neurological deficits
Skin: no rash
Psychiatric: well kept. interactive and cooperative
Extremities: no edema. no calf tenderness.
Course
Orders/Labs/Results
Orders:
Orders
09/14/25 23:15
EKG [Electrocardiogram (*1)] Urgent
Reason for Study: Abdominal Pain
Urinalysis Reflex To Culture Urgent
Date Specimen was Collected: 09/14/25
Time Specimen was Collected: 23:16
09/14/25 23:16
EKG- Treatment ONCE
09/14/25 23:20
Complete Blood Count/With Diff Urgent
Comprehensive Metabolic Panel Urgent
Lipase Urgent
Troponin I Urgent
09/14/25 23:55
HYDROmorphone [Dilaudid] 0.5 mg IV NOW STA
Ondansetron Injectable [Zofran] 4 mg IV NOW STA
09/14/25 23:58
0.9% Sodium Chloride 500 ml [Nss] 500 ml IV BOLUS
CR Obstruct Series W/pa Chest Urgent
Comment:
Reason For Exam: left sided abd pain
09/15/25 00:34
CT Abd/pelvis W Iv Cont Urgent
Comment:
Reason For Exam: LLQ pain
09/15/25 00:40
HYDROmorphone [Dilaudid] 0.5 mg IV NOW STA
Ketorolac [Toradol] 15 mg IV NOW STA
09/15/25 01:11
Urine Microscopic Reflex Cult Urgent
Urine Culture Urgent
DANIEL Source: U
Specimen Description:
Date Specimen was Collected: 09/14/25
Time Specimen was Collected: 23:16
09/15/25 02:03
CefTRIAXone [Rocephin] 1,000 mg IV NOW STA
09/15/25 02:12
Lactate Level [Lactic Acid] Urgent
Blood Culture Q30M
DANIEL Source: Blood/Venous
Specimen Description:
Blood Culture Q30M
DANIEL Source: Blood/Venous
Specimen Description:
09/15/25 02:39
HYDROmorphone [Dilaudid] 0.5 mg IV NOW STA
09/15/25 03:00
0.9% Sodium Chloride 500 ml [Nss] 500 ml IV 100 mls/hr
09/15/25 03:09
Admit/Transfer Patient As Directed
Co-Sign Provider:
Level of Care: Inpatient admission
Assign to:: Medical/Surgical
Physician / Group: Dragan
Diagnosis: Kidney Stone
Reason for Hospitalization: Kidney Stone
Expected length of stay greater than two midnights?: Yes
ELOS- Estimated Length of Stay in days: 2
I certify the patient meets the requirements for IP care: Yes
PRN Pain Medication Management As Directed
May give lesser potent ordered pain med per pt: Yes
preference::
Protocol:: Medication orders for pain may be administered in a
manner that supports deferring to patient preference
when the pt is:
- Requesting an ordered lesser potent pain medication.
Least to most potent pain medications are defined
as: acetaminophen < NSAID < tramadol < opioids
(morphine, oxycodone, hydromorphone).
- Requesting a lesser dose of the same medication IF
ORDERED.
- Requesting a less intrusive route of administration
if both routes are prescribed by the provider (PO <
IV).
09/15/25 03:11
Code Status As Directed
Resuscitation Status: Full Code
09/15/25 03:58
Acetaminophen [Tylenol] 650 mg PO Q4HPRN PRN
HYDROmorphone [Dilaudid] 0.5 mg IV Q4HPRN PRN
Hydrocodone 5/APAP 325 [[place] 5/325] 1 tablet PO TIDPRN PRN moderate pain moderate pain
09/15/25 03:58
UROLOGY CONSULT Routine
Consulting Provider: Vince Morales
Was physician already notified: Yes
Comment: [facility]
Activity As Directed
Activity Level: Ambulate
With Assistance
Bladder Scan As Directed
Follow Bladder Retention/Intermittent Cath Algorithm?: Yes
PRN if no void in __ hours: 6
Frequency: Per Retention Algorithm
If Bladder Scan Result >: 400
then:: Straight cath
I/O [Intake/ Output] As Directed
Frequency: Per unit guidelines
Pneumatic Compression Sleeves As Directed
Type: Knee high
Straight Cath As Directed
Frequency: Per Retention Algorithm
Additional Instructions: straight cath as needed per acute urinary retention algorithm for 24 hrs
Additional Instructions: for bladder scan greater than 400 mL
Strain Urine As Directed
Vital Signs As Directed
Frequency: Per unit guidelines
Oxygen Therapy [O2 Therapy] [RESP] Routine
Titrate/Wean O2 to maintain O2 sat greater than (%): 94
DX Deep Vein Thrombosis Video Routine
09/15/25 Breakfast
NPO
Allow oral meds: Yes
Allow clear liquids: Sips of Clears
09/15/25 07:34
Basic Metabolic Panel IN AM
Complete Blood Count/No Diff IN AM
09/15/25 08:00
Amlodipine [Norvasc] 5 mg PO BID
Carvedilol [Coreg] 25 mg PO BID
Cholecalciferol (Vitamin D3) [VITAMIN D3 (cholecalciferol)] 50 mcg PO BID
Clonidine [Catapres] 0.1 mg PO DAILY
Furosemide [Lasix] 40 mg PO DAILY
Spironolactone [Aldactone] 100 mg PO DAILY
Sulfasalazine [Azulfidine] 1,000 mg PO TID
Tamsulosin [Flomax] 0.4 mg PO DAILY
Valsartan [Diovan] 320 mg PO DAILY
09/15/25 18:00
Atorvastatin [Lipitor] 40 mg PO QPM
09/15/25 22:00
Docusate W/Senna [Senokot-S] 1 tablet PO HS
09/16/25 04:00
CefTRIAXone [Rocephin] 1,000 mg IV Q24H
Abnormal Lab Results
09/14/25 09/15/25
23:20 01:11
RBC 3.90 L 10^6/uL
(4.70-6.10)
Hgb 12.1 L g/dL
(13.0-18.0)
Hct 35.5 L %
(39.0-52.0)
Absolute Neuts (auto) 8.4 H 10^3/uL
(1.4-6.5)
Absolute Lymphs (auto) 1.1 L 10^3/uL
(1.2-3.4)
Absolute Monos (auto) 0.7 H 10^3/uL
(0.1-0.6)
Neutrophils % 81.1 H %
(42.2-75.2)
Lymphocytes % 11.0 L %
(20.5-51.1)
Glucose 135 H mg/dl
(70-99)
Lipase 22 L U/L
(23-300)
Ur Occult Blood Reflex 4+ A
(Negative)
Leukocyte Esterase Rfl 2+ A
(Negative)
Urine RBC >100 A /HPF
(0-2)
Urine WBC (Reflex) 60-70 A /HPF
(0-5)
Urine Bacteria (Reflex) Moderate A
(Negative)
Urine Albumin (Reflex) 3+ A
(Neg - Trace)
09/14/25 23:20
09/14/25 23:20
Vital Signs
Initial and Last Documented VS:
Initial Vital Signs
BP
188/70
09/14/25 23:14
Last Documented Vital Signs
Temp Pulse Resp BP Pulse Ox
98.5 F 89 18 134/71 93
09/15/25 19:51 09/15/25 19:51 09/15/25 19:51 09/15/25 20:03 09/15/25 19:51
MDM/Problems Addressed
MDM/Problems Addressed:
History and exam concerning for obstructing renal stone with urinalysis suggestive of UTI. However, patient is afebrile, hemodynamically stable, and nontoxic-appearing. Pain persisting despite treatment, although improved.
Rocephin given. Urine culture pending. Blood culture pending.
On-call urology, , notified via [employer]
Critical care statement: A total of 40 minutes of critical care time was provided for this patient. This includes management of unstable vital signs, evaluation of the patient at bedside, reviewing the patient's pertinent medical records, discussion
with consultants, review of old EKGs and review of pertinent medical records. This time with separate from time utilized to perform the aforementioned documented procedures
*Pulse Oximetry
SaO2: 96
Patient hypoxic: no
*Critical Care Note
Total Time (30-74mins, 75-104mins- exclusive of procedures): 40 min
ED Attending Note
-
Portions of this chart may have been created with voice recognition software.� Occasional wrong word or��sound alike� substitutions may have occurred due to the inherent limitations of voice recognition software.
Discharge Plan
Departure
Patient Disposition: Admit
Date of Disposition: 09/15/25
Time of Disposition: 02:07
Admit to: Med/Surg
Presentation/result/management discussed w/ accepting MD/DO: Hospitalist
Discharge Problem:
Renal colic, Acute UTI
Interventions
Interventions:
*Risk Screen - Suicide Last Done: 09/14/25 23:16
*General Assessment Last Done: 09/14/25 23:16
*Neglect/Abuse Screening Last Done: 09/14/25 23:16
*ED- Fall Risk Assessment Last Done: 09/14/25 23:16
*ED COVID-19 Vaccine History Last Done: 09/14/25 23:16
*ED Influenza Vaccine History Last Done: 09/14/25 23:16
*Nursing Disposition Last Done: 09/15/25 03:56
IF-Vfxkil-Jnkzgfctxq Assessment Last Done: 09/14/25 23:18
ED-Male Genitourinary Assessment Last Done: 09/14/25 23:18
Discharge Date and Time
Discharge Date/Time: 09/15/25 03:56
[2025-09-15] VITALS (17 sets, daily range): BP systolic 126–192; BP diastolic 51–75; BMI 32.1
[2025-09-15] MEDS: DILAUDID 0.5 MG IV ×4 (00:02→08:17)
[2025-09-15] MEDS: NSS 500 IV ×5 (00:02→21:34)
[2025-09-15] MEDS: ZOFRAN 4 MG IV (00:02)
[2025-09-15 00:05] LABS: Troponin I 0.033 ng/ml
[2025-09-15] MEDS: TORADOL 15 MG IV (00:42)
[2025-09-15 01:39] LABS: Urine Character Slightly Cloudy (Clear)
[2025-09-15 01:54] LABS: Urine Red Blood Cell >100 /HPF (0-2); Urine White Cell 60-70 /HPF (0-5)
[2025-09-15] MEDS: ROCEPHIN 1000 MG IV (02:13)
--- NOTE | 2025-09-15 03:14 | HPS.HSE ---
Family Physician
-
Family Physician: Costa Finnegan MD
Chief Complaint
-
Flank Pain / Abdominal Pain
History of Present Illness
Patient is an 80y M with PMH significant for hypertension, Crohn's disease and BPH who presents to ED complaining of L flank pain and abdominal pain. Patient states that pain started suddenly around 5 PM this evening. He notes pain in the L
flank area with radiation into the LLQ / abdomen. He notes that pain is quite severe and not improved with changes in position, etc. He denies any prior h/o similar symptoms.
He has had some associated nausea with a few episodes of non-bloody emesis. No dysuria or gross hematuria. No diarrhea.
No recent medication changes, major dietary changes, etc.
Medical History
Past Medical History
Past Medical History: Reports Other
Additional Past Medical History:
Crohn's Disease
Hypertension
Hypothyroidism
MIRIAM
COPD / Restrictive Lung Disease
BPH
Past Surgical History: Reports Other
Additional Past Surgical History:
Right Hemicolectomy
Bilateral STUART
Left Rotator Cuff Repair
TURP
Lumbar Laminectomy
Social History
Tobacco: Former Smoker (Quit smoking 35 years ago.)
Alcohol: Occasional
Drug: None
Family History
Family History: Not pertinent
Allergies / Home Medications
Allergies reflects when Allergies were last updated in [facility].
Home Medications with original date entered in [facility]
Allergy/Medication List:
Allergies
Allergy/AdvReac Type Severity Reaction Status Date / Time
No Known Allergies Allergy Verified 09/14/25 23:15
Home Medications
aspirin 81 mg chewable tablet 81 mg PO DAILY 11/27/17
carvedilol 25 mg tablet (Coreg) 25 mg PO BID 11/27/17
cholecalciferol (vitamin D3) 50 mcg (2,000 unit) tablet 2,000 unit PO BID 11/27/17
hydrocodone 5 mg-acetaminophen 325 mg tablet 1 ea PO TIDPRN PRN pain 11/27/17
sulfasalazine 500 mg tablet 1,000 mg PO TID 11/27/17
amlodipine 5 mg tablet (Norvasc) 5 mg PO BID 09/15/25
atorvastatin 40 mg tablet 40 mg PO QPM 09/15/25
cetirizine 10 mg tablet 10 mg PO DAILY 09/15/25
clonidine HCl 0.1 mg tablet 0.1 mg PO DAILY 09/15/25
furosemide 40 mg tablet 40 mg PO DAILY 09/15/25
sennosides 8.6 mg-docusate sodium 50 mg tablet (Stool Softener-Stimulant Laxative) 1 tab-cap PO HS 09/15/25
spironolactone 100 mg tablet 100 mg PO DAILY 09/15/25
valsartan 320 mg tablet 320 mg PO DAILY 09/15/25
Review of Systems
-
History Source: Patient
Constitutional: Denies Fever or Chills
Respiratory: Denies Cough or Trouble Breathing
Cardiac: Denies Chest Pain or Palpitations
Abdomen/GI: Reports Abdominal Pain, Nausea and Vomiting; Denies Diarrhea or Bloody Stools
: Reports Flank Pain; Denies Dysuria, Frequency or Bleeding
Musculoskeletal: Denies Joint Pain or Edema
Neurological: Denies Dizzy or Headache
Psych: Denies Depression or Anxiety
Physical Exam
Vital Signs
Vital Signs
Temp Pulse Resp BP Pulse Ox
97.9 F 73 14 174/63 95
09/14/25 23:16 09/15/25 02:00 09/15/25 02:00 09/15/25 02:00 09/15/25 01:00
Physical Exam
General: Other (80y M in mild distress due to pain.)
HEENT: Moist mucous membranes and PERRLA
Respiratory: Clear; No Wheezes, Rales or Rhonchi
Cardiac: S1/S2, Regular Rhythm and Murmur (II/ HARPAL)
GI: Soft, Non Distended, Normal Bowel Sounds and Other (Pos L sided abdominal tenderness with voluntary guarding. Pos BS.)
Genito-urinary: Costovertebral angle tend (Left)
Musculoskeletal: No Clubbing, No Cyanosis and Other (Trace - 1+ LE edema bilaterally.)
Neuro: AO x 3
Laboratory Results
-
09/14/25 23:20
09/14/25 23:20
Laboratory Results
Lactic Acid 0.9 mmol/L (0.7-2.0) 09/15/25 02:12
Total Bilirubin 1.3 mg/dl (0.2-1.3) 09/14/25 23:20
AST 29 U/L (17-59) 09/14/25 23:20
ALT 17 U/L (0-50) 09/14/25 23:20
Alkaline Phosphatase 53 U/L (38-126) 09/14/25 23:20
Troponin I 0.033 ng/ml 09/14/25 23:20
Lipase 22 U/L (23-300) L 09/14/25 23:20
Impression/Plan
-
A/P: Patient is an 80y M with PMH significant for hypertension who presents to ED complaining of L flank pain and abdominal pain since 5 PM.
Left UPJ Stone
- Admit for further evaluation and treatment.
- CT done in the ED shows 10mm stone at L UPJ with mild hydro / associated stranding.
- Continue supportive care with pain control, IVFs, tamsulosin, etc.
- Strain urine and send stone for analysis if able as it is his first episode.
- Urology consulted for additional recommendations and possible cysto / stent.
- Continue ceftriaxone for now pending urine culture data.
Multi-Drug Resistant Hypertension
- BP elevated at present likely in part due to pain.
- Continue usual home medication regimen with holding parameters.
- Adjust as needed for adequate control.
Crohn's Disease
- Stable. No current GI complaints.
- Continue sulfasalazine.
Chronic Pain Syndrome
Lumbar DDD
- Stable. Continue hydrocodone PRN.
BPH
- Stable. Tamsulosin as noted above.
- Patient is followed by Urology at [facility] (Dr. Vargas).
DVT Prophylaxis: SCDs
Code Status: Full
[2025-09-15] MEDS: NORCO 5/325 1 TABLET PO (05:15)
[2025-09-15 08:06] LABS: Hematocrit 34.8 % (39.0-52.0); Hemoglobin 11.6 g/dL (13.0-18.0); Mean Corp Hgb Conc. 33.3 g/dL (33.0-37.0); Mean Corpuscular Volume 92.6 fL (80.0-94.0); Platelet Count 158 10^3/uL (130-400); Red Cell Dist. Width 13.2 % (11.5-14.5)
[2025-09-15] MEDS: DIOVAN 320 MG PO (08:14)
[2025-09-15] MEDS: NORVASC 5 MG PO ×2 (08:15→20:03)
[2025-09-15] MEDS: VITAMIN D3 (cholecalciferol) 50 MCG PO ×2 (08:15→20:03)
[2025-09-15] MEDS: COREG 25 MG PO ×2 (08:15→20:02)
[2025-09-15] MEDS: ALDACTONE 100 MG PO (08:16)
[2025-09-15] MEDS: CATAPRES 0.1 MG PO (08:16)
[2025-09-15] MEDS: LASIX 40 MG PO (08:16)
[2025-09-15] MEDS: AZULFIDINE 1000 MG PO ×3 (08:17→21:30)
[2025-09-15] MEDS: FLOMAX 0.4 MG PO (08:17)
[2025-09-15 08:35] LABS: Blood Urea Nitrogen 12 mg/dl (9-20); Calcium 8.8 mg/dl (8.4-10.2); Carbon Dioxide 26 mmol/L (22-30); Chloride 107 mmol/L (98-107); Estimated Creatinine Clearance 66 ml/min; Glucose 105 mg/dl (70-99); Potassium 3.8 mmol/L (3.5-5.1); Sodium 137 mmol/L (135-145); eGFR > 60.00
--- NOTE | 2025-09-15 09:54 | W.SUR.PREOP ---
Pre-Operative Surgical Note
-
I have examined this patient prior to the performance of the scheduled procedure.
The patient's condition is unchanged from the time of the current History and
Physical and the patient is able to undergo the scheduled procedure.
cUTI - UA grossly positive for UTI
Obstructing large proximal left ureteral stone w/ hydronephrosis
WBC WNL
Cr WNL
UA grossly positive for UTI
UCx pending
Detailed discussion including SDM had w/ patient regarding risks, benefits, alternatives, and potential complications of cystoscopy + left stent insertion.
Risk and potential complications include but not limited to urosepsis, bleeding, ureteral/bladder injury, risk of ureteral stricture formation, need for additional procedures/surgeries.
- CT imaging reviewed
- To OR for cystoscopy + LEFT stent insertion
- Continue IV antibiotics
- Plan for outpatient staged ULS procedure in 2-3 weeks
D/w patient.
--- NOTE | 2025-09-15 12:12 | W.IMMPOSTOP ---
Surgical Immed Post Op Note
-
Primary Surgeon: Carmen
Pre-op Diagnosis: cUTI, obstructing proximal left ureteral stone, BPH s/p TURP
Post-op Diagnosis: Same
Procedure Performed: cystoscopy + left ureteral stent insertion
Anesthesia Type: LMA
Specimen / Cultures: None/None
Estimated Blood Loss: Negligible
Drains: 4.8Fr x 24 cm JJ Tria left ureteral stent
Complications: None
Operative Findings: Final KUB and cystoscopy confirming appropriate left ureteral stent in addition to radiopaque stone in proximal left ureter.
--- NOTE | 2025-09-15 12:36 | W.PN.UPDATE ---
Update Note
Progress Note Update
Left UPJ Stone with pyelonephritis
CT done in the ED shows 10mm stone at L UPJ with mild hydro / associated fat stranding along with CVA tenderness
IVF
Flomax
Strain urine
Uro consult
Ctx
HTN
Continue antihypertensives
Crohn's Disease
No current GI complaint.
Continue sulfasalazine
Chronic Pain Syndrome
Continue hydrocodone prn
LDD
Continue hydrocodone prn
BPH
Tamsulosin as noted above
Follow with Urology at [facility] (Dr. Vargas)
[2025-09-15] MEDS: DETROL LA 4 MG PO (12:55)
--- NOTE | 2025-09-15 13:52 | PTCARENOTE ---
Pt returned from PACU/OR via bed, accompanied by volunteer. Pt AAO x3, BUSTOS well. VSS. On room air- pulseox 95%, no SOB noted. Abd soft, to start regular diet. Pt voided 250 ml yellow urine upon return to room, denies discomfort. IVF's NSS @
100 ml/hr resumed via Lt AC site; currently infusing well without sx of infiltration. Resting in bed at present. Will continue to monitor.
--- NOTE | 2025-09-15 17:07 | PTCARENOTE ---
Pt resting comfortably since return from OR; AAO x3, BUSTOS well, VSS. On room air- pulse ox 95%, no SOB noted. Abd large, soft. uzma PO well. Voiding mod amts orange-colored urine without difficulty. IVFs NSS @ 100 ml/hr infusing via Lt AC site
without sx of infiltration. No c/o at present. Will continue to monitor.
[2025-09-15] MEDS: LIPITOR 40 MG PO (17:54)
[2025-09-15] MEDS: SENOKOT-S 1 TABLET PO (21:34)
[2025-09-16] MEDS: ROCEPHIN 1000 MG IV (03:26)
[2025-09-16] MEDS: STERILE WATER FOR INJECTION 10 ML IV (03:27)
[2025-09-16 03:45] VITALS: BP 107/65
[2025-09-16] MEDS: NSS 500 IV (07:29)
[2025-09-16] MEDS: NSS IV ×2 (07:44→12:18)
[2025-09-16 07:53] VITALS: BP 135/56
--- NOTE | 2025-09-16 08:09 | W.PN.URO.CBU ---
Today's Communication / Plan
-
antibx
Assessment / Plan
-
obstructing stone s/p stent
blood cx + for enterococcus
continue stent
await final cx's- will discuss with med team antibx adjustment
eventual plan for outpt stone procedure in 2-[address] garcia
Diagnosis
-
Date of Service: September 16, 2025
-
Patient Diagnosis:
stone
UTI
Post Op Day:
ureteral stent 09/15
Subjective
-
pt feels fine
some expected frequency of urination
1 blood cx + for enterococcus
Objective
-
Vital Signs
Temp Pulse Resp BP Pulse Ox
98.2 F 79 18 107/65 95
09/16/25 03:45 09/16/25 03:45 09/16/25 03:45 09/16/25 03:45 09/16/25 03:45
Intake and Output
09/15/25 09/16/25 09/17/25
06:59 06:59 06:59
Intake Total 1580 / 1580 240 / 240
Output Total 1600 / 1600 800 / 800
Balance -20 / -20 -560 / -560
Intake:
Oral fluids 580 / 580 240 / 240
IV fluids (Total) 1000 / 1000
Output:
Urine, Voided 1600 / 1600 800 / 800
Laboratory Results
09/15/25 07:34
09/15/25 07:34
Review of Systems
-
Constitutional: No Symptoms
Respiratory: No Symptoms
Cardiac: No Symptoms
Abdomen/GI: No Symptoms
: Frequency
Physical Exam
-
General - no acute distress
Abdomen - soft, non-tender
--- NOTE | 2025-09-16 09:03 | PHA.VAN.IN ---
Assessment
- Assessment
Renal Function: Appears similar to baseline
Renal Function may be Overestimated due to: age
AUC Dosing Plan
- Dosing Variables
Dosing Weight (kg): 98.384
Dosing CrCl (ml/min): 66
Vd coefficient (L/kg): 0.7
- Empiric Dosing
Initial / Loading Dose: 1000mg
Maintenance Regimen: 1000mg q12h
Estimated AUC (mcg*h/mL): 505
Estimated Peak (mcg*h/mL): 28.6
Estimated Trough (mcg/ml): 14.9
Estimated Half Life (H): 11.7
- Monitoring
No levels ordered at this time: consider at steady state
Pharmacokinetics Vancomycin I
- -
Patient Age: 80
Patient Sex: Male
Vancomycin Day #: 1
Indication: Genito-Urinary Tract
Requesting Provider: Dr. Frazier
Pertinent Antimicrobial Allergies:
NKDA
Height / Weight:
Height 5 ft 9 in
Actual Weight 98.384 kg
IBW in k.7
- Vital Signs / Lab Results
Temp Pulse Resp BP Pulse Ox
98.4 F 80 18 135/56 95
09/16/25 07:53 09/16/25 07:53 09/16/25 07:53 09/16/25 07:53 09/16/25 07:53
Lab Results - Hematology
09/14/25 09/15/25
23:20 07:34
WBC 10.3 8.7
Lab Results - Chemistry
09/14/25 09/15/25
23:20 07:34
BUN 13 12
Creatinine 0.7 1.0
Estimated Creat Clear 96 66
Albumin 4.1
09/15/25
02:12
Lactic Acid 0.9
Lab Results - Urine
09/15/25
01:11
Urine Nitrite (Reflex) Negative
Leukocyte Esterase Rfl 2+ A
Urine WBC (Reflex) 60-70 A
Ur Squamous Epith Cells 6-10
Urine Bacteria (Reflex) Moderate A
Microbiology Results
09/15/25 02:12 Blood Culture - Preliminary
Blood/Venous No Growth in 24 hours- Final report to follow
09/15/25 02:12 Blood Culture - Preliminary
Blood/Venous Enterococcus faecalis
Gram Stain - Preliminary
[2025-09-16] MEDS: ALDACTONE 100 MG PO (09:30)
[2025-09-16] MEDS: COREG 25 MG PO ×2 (09:30→20:37)
[2025-09-16] MEDS: CATAPRES 0.1 MG PO (09:30)
[2025-09-16] MEDS: VITAMIN D3 (cholecalciferol) 50 MCG PO ×2 (09:31→20:37)
[2025-09-16] MEDS: FLOMAX 0.4 MG PO (09:31)
[2025-09-16] MEDS: AZULFIDINE 1000 MG PO ×3 (09:31→20:37)
[2025-09-16] MEDS: NORVASC 5 MG PO ×3 (09:31→20:42)
[2025-09-16] MEDS: DIOVAN 320 MG PO (09:31)
[2025-09-16] MEDS: LASIX 40 MG PO (09:31)
[2025-09-16] MEDS: VANCOCIN 200 IV ×2 (10:13→17:33)
[2025-09-16 11:18] VITALS: BP 161/56
--- NOTE | 2025-09-16 11:42 | W.PN.HOSP.TC ---
Today's Communication/Plan
-
Assessment / Plan
Assessment / Plan
NAD
Scleral Anicteric
MMM
No JVD
CTABL
RRR, S1/S2
Soft, NT, ND, BS+
Warm, Dry
AAOx3
Calm
Left UPJ Stone with pyelonephritis
CT done in the ED shows 10mm stone at L UPJ with mild hydro / associated fat stranding along with CVA tenderness
S/p stent placement on 09/15 - POD 1 with Uro
DC IVF
Flomax
Strain urine
Uro following
DC Ctx
Start Vanc as Bcx growing GPC
GPC Bacteremia with enterococcus
Bcx x2 reordered, until cx negative
Follow up on sensititivies
Vanc dose per pharmacy
2d echo
ID consult
HTN
Continue antihypertensives
Crohn's Disease
No current GI complaint.
Continue sulfasalazine
Chronic Pain Syndrome
Continue hydrocodone prn
LDD
Continue hydrocodone prn
BPH
Tamsulosin as noted above
Follow with Urology at [facility] (Dr. Vargas)
Anticipated Discharge: > 48 hours
Subjective/Interval History
-
Date of Service: September 16, 2025
seen and examined. no new complaints. no acutte overnight evetns
Objective Data
-
Vital Signs:
Vital Signs
Temp Pulse Resp BP Pulse Ox
98.4 F 80 18 135/56 96
09/16/25 07:53 09/16/25 07:53 09/16/25 07:53 09/16/25 07:53 09/16/25 08:10
I&O
09/15/25 09/16/25 09/17/25
06:59 06:59 06:59
Intake Total 1580 / 1580 240 / 240
Output Total 1600 / 1600 800 / 800
Balance -20 / -20 -560 / -560
--- NOTE | 2025-09-16 13:44 | CON.ID ---
Consultation
-
Date/Time Consultation Requested: 09/16/2025 0839
Date/Time Consultation Performed: 09/16/2025 1346
Requesting Provider: Dr. Frazier
Performing Provider: Dr. Masters
Reason for Consultation: Suspected pyelonephritis, Bacteremia
Chief Complaint / Past History
History of Present Illness
Francisco Barnes is a 80-year-old male being evaluated at the request of Dr. Frazier in regards to possible polyp Fridays. History is obtained from chart review, along with patient interview.
Patient presented to the emergency room at [facility] on 09/15 with complaints of left flank discomfort and abdominal pain which started approximately 12 hours before. He noted the left flank discomfort radiated to the left lower quadrant
and abdomen and reported it as 10/10. He also reported some nausea along with some vomiting, but denied any recent dysuria or hematuria. Ultimately he felt ill enough to call an ambulance. In the emergency room, he was found to have a normal
white count with a left shift, and CT imaging of the abdomen revealed obstructive uropathy, with a 10 mm stone noted at the ureteropelvic junction. The patient was taken to the OR for stent placement. Blood cultures obtained at the time of
admission are now positive for Enterococcus, and Infectious Diseases is asked to comment upon further antimicrobial management.
At this time, he reports he is feeling improved, with relief of the left flank discomfort.
Past History
Additional Past Medical History:
Crohn's disease
HTN
Hypothyroidism
MIRIAM
COPD
BPH
Additional Past Surgical History:
Right hemicolectomy
Bilateral STUART
Left rotator cuff repair
TURP
Laminectomy
Allergy History:
No Known Allergies Allergy (Verified 09/14/25 23:15)
Medications Reviewed: Yes
Current Antibiotics:
Vancomycin (dosing per pharmacy)
Social History
Tobacco: Former Smoker
Alcohol: Occasional
Drug: None
Employment: Retired
Family History
Family History: Not Pertinent
Review of Systems
Vital Signs
Temp Pulse Resp BP Pulse Ox
99.6 F 75 18 161/56 96
09/16/25 11:18 09/16/25 11:18 09/16/25 11:18 09/16/25 11:18 09/16/25 11:18
Physical Exam
Physical Exam
Constitutional: No Acute Distress, Comfortable and Non-toxic
Eyes: No Conjunctival Hemorrhage and Sclera Anicteric
Oral: No Thrush and No Ulcers
Cardiovascular: Regular Rate and S1/S2; Negative S3/S4 or Murmur
Pulmonary: Clear; Negative Wheezes, Rales or Rhonchi
Gastrointestinal: Soft, Non Tender, Non Distended, Normal Bowel Sounds, No Rebound and No Guarding
Extremities: Negative Edema, Cyanosis, Erythema, Splinter Hemorrhage or Janeway Lesions
Musculoskeletal: Negative Joint Swelling or Joint Effusion
Skin: Warm and Dry; Negative Rash or Jaundice
Neurological: Awake, Alert and Oriented
Psychological: Calm
.
Lab / Diagnostic Study Results
09/15/25 07:34
09/15/25 07:34
Abs Immat Gran (auto) 0.0 10^3/uL (0-0.05) 09/14/25 23:20
Absolute Neuts (auto) 8.4 10^3/uL (1.4-6.5) H 09/14/25 23:20
Absolute Lymphs (auto) 1.1 10^3/uL (1.2-3.4) L 09/14/25 23:20
Absolute Monos (auto) 0.7 10^3/uL (0.1-0.6) H 09/14/25 23:20
Absolute Basos (auto) 0.1 10^3/uL (0-0.2) 09/14/25 23:20
Immature Gran % 0.3 % (0-0.5) 09/14/25 23:20
Neutrophils % 81.1 % (42.2-75.2) H 09/14/25 23:20
Lymphocytes % 11.0 % (20.5-51.1) L 09/14/25 23:20
Monocytes % 6.9 % (1.7-9.3) 09/14/25 23:20
Eosinophils % 0.1 % (0-6) 09/14/25 23:20
Basophils % 0.6 % (0-2) 09/14/25 23:20
Lactic Acid 0.9 mmol/L (0.7-2.0) 09/15/25 02:12
Ur Squamous Epith Cells 6-10 /LPF (Few) 09/15/25 01:11
Microbiology Results
Micro:
09/15/25 02:12 Blood Culture - Preliminary
Blood/Venous Enterococcus faecalis
Gram Stain - Preliminary
09/15/25 01:11 Urine Culture - Preliminary
Urine Enterococcus species
09/16/25 09:26 Blood Culture - Pending
Blood/Venous
09/16/25 08:53 Blood Culture - Pending
Blood/Venous
09/15/25 02:12 Blood Culture - Preliminary
Blood/Venous No Growth in 24 hours- Final report to follow
Imaging:
09/15/2025 CT abdomen/pelvis with IV contrast: 10 mm stone at the left ureteropelvic junction with associated mild left hydronephrosis and severe left perinephric stranding. No evidence of intestinal obstruction, bowel inflammatory process or
abscess formation. Please see full dictation for additional detail. Film personally viewed.
Assessment / Plan
Obstructive uropathy secondary to 10 mm stone
Left hydronephrosis
Suspected left pyelonephritis
Bacteremia with Enterococcus.
Crohn's disease
HTN
Hypothyroidism
MIRIAM
COPD
BPH
Recommendations:
Continue with empiric vancomycin for the present. Follow levels closely to prevent nephrotoxicity.
Add ampicillin 2 gm IV q.6 hours.
Repeat blood cultures have been obtained; will continue to follow.
Await final susceptibility data of positive blood cultures to guide further antimicrobial selection and de-escalation.
Monitor white count and temperature curve.
Continue with supportive measures.
Further recommendations as additional data is returned.
[2025-09-16 15:00] VITALS: BP 136/49
[2025-09-16] MEDS: AMPICILLIN 108 MG IV ×2 (16:19→20:42)
[2025-09-16] MEDS: LIPITOR 40 MG PO (17:32)
[2025-09-16] MEDS: SENOKOT-S 1 TABLET PO (20:41)
[2025-09-16 23:00] VITALS: BP 173/69
[2025-09-17] MEDS: AMPICILLIN 108 MG IV ×4 (03:18→21:51)
[2025-09-17] MEDS: TYLENOL 650 MG PO (04:11)
[2025-09-17] MEDS: NORCO 5/325 1 TABLET PO (04:12)
[2025-09-17] MEDS: VANCOCIN 200 IV (05:07)
--- NOTE | 2025-09-17 06:47 | W.PN.URO.CBU ---
Today's Communication / Plan
-
f/u with dr garcia after discharge
Assessment / Plan
-
obstructing stone s/p stent
blood cx + for enterococcus
continue stent
enterococcus in urine and blood- ID following
plan for outpt stone procedure in 2-[address] garcia
Diagnosis
-
Date of Service: September 17, 2025
-
Patient Diagnosis:
stone
UTI/bacteremia- enterococcus
Post Op Day:
ureteral stent 09/15
Subjective
-
pt feels ok
ucx and blood cx + for enterococcus
Objective
-
Vital Signs
Temp Pulse Resp BP Pulse Ox
98.9 F 72 18 173/69 96
09/16/25 23:00 09/16/25 23:00 09/16/25 23:00 09/16/25 23:00 09/16/25 23:00
Intake and Output
09/15/25 09/16/25 09/17/25
06:59 06:59 06:59
Intake Total 1580 / 1580 1468 / 1468
Output Total 1600 / 1600 2800 / 2800
Balance -20 / -20 -1332 / -1332
Intake:
Oral fluids 580 / 580 960 / 960
IV fluids (Total) 1000 / 1000
IV piggybacks 508 / 508
Output:
Urine, Voided 1600 / 1600 2800 / 2800
Review of Systems
-
Constitutional: Fatigue
Respiratory: No Symptoms
Cardiac: No Symptoms
Abdomen/GI: No Symptoms
: Frequency
Physical Exam
-
General no acute distress
[2025-09-17 07:29] VITALS: BP 178/75
[2025-09-17] MEDS: NORVASC 5 MG PO ×2 (08:05→20:24)
[2025-09-17] MEDS: AZULFIDINE 1000 MG PO ×3 (08:05→21:50)
[2025-09-17] MEDS: COREG 25 MG PO ×2 (08:07→20:24)
[2025-09-17] MEDS: ALDACTONE 100 MG PO (08:08)
[2025-09-17] MEDS: DIOVAN 320 MG PO (08:08)
[2025-09-17] MEDS: VITAMIN D3 (cholecalciferol) 50 MCG PO ×2 (08:09→20:24)
[2025-09-17] MEDS: FLOMAX 0.4 MG PO (08:09)
[2025-09-17] MEDS: CATAPRES 0.1 MG PO (08:09)
[2025-09-17 08:11] LABS: Hematocrit 31.8 % (39.0-52.0); Hemoglobin 11.1 g/dL (13.0-18.0); Mean Corp Hgb Conc. 34.9 g/dL (33.0-37.0); Mean Corpuscular Volume 91.4 fL (80.0-94.0); Platelet Count 128 10^3/uL (130-400); Red Cell Dist. Width 13.2 % (11.5-14.5)
[2025-09-17] MEDS: LASIX 40 MG PO (08:19)
[2025-09-17 08:34] LABS: Blood Urea Nitrogen 6 mg/dl (9-20); Calcium 8.5 mg/dl (8.4-10.2); Carbon Dioxide 26 mmol/L (22-30); Chloride 106 mmol/L (98-107); Estimated Creatinine Clearance 110 ml/min; Glucose 109 mg/dl (70-99); Potassium 3.5 mmol/L (3.5-5.1); Sodium 135 mmol/L (135-145); eGFR > 60.00
--- NOTE | 2025-09-17 08:40 | PHA.VAN.FU ---
Vancomycin Assessment / Plan
- Assessment
Renal Function: SCR Decreasing
WBC's are: WNL
In the past 24 hrs, patient has been: Afebrile
Concomitant Antimicrobials: AMPICILLIN
- Dosing Plan
Adjust Regimen to: 1500MG Q12H
New Regimen Predicts: AUC (531), Peak (33.5), Trough (13.4)
- Monitoring Plan
No level(s) ordered at this time: CONSIDER AT STEADY STATE
- Follow Up
Pharmacy will continue to follow.
Vancomycin Follow UP
- -
Patient Age: 80
Patient Sex: Male
Vancomycin Day #: 2
Indication: Genito-Urinary Tract
Requesting Provider: Dr. Frazier
Pertinent Antimicrobial Allergies:
NKDA
Height / Weight:
Height 5 ft 9 in
Actual Weight 98.384 kg
IBW in k.7
- Vital Signs / Lab Results
Temp Pulse Resp BP Pulse Ox
98.4 F 70 18 178/75 95
09/17/25 07:29 09/17/25 08:05 09/17/25 07:29 09/17/25 08:05 09/17/25 07:29
Lab Results - Hematology
09/14/25 09/15/25 09/17/25
23:20 07:34 07:58
WBC 10.3 8.7 6.3
Lab Results - Chemistry
09/14/25 09/15/25 09/17/25
23:20 07:34 07:58
BUN 13 12 6 L
Creatinine 0.7 1.0 0.6 L
Estimated Creat Clear 96 66 110
Albumin 4.1
09/15/25
02:12
Lactic Acid 0.9
Lab Results - Urine
09/15/25
01:11
Urine Nitrite (Reflex) Negative
Leukocyte Esterase Rfl 2+ A
Ur Squamous Epith Cells 6-10
Microbiology Results
09/15/25 02:12 Blood Culture - Preliminary
Blood/Venous No Growth in 48 hours- Final report to follow
09/15/25 02:12 Blood Culture - Preliminary
Blood/Venous Enterococcus faecalis
Gram Stain - Preliminary
09/15/25 01:11 Urine Culture - Preliminary
Urine Enterococcus species
[2025-09-17] MEDS: VANCOCIN HCL 500 MG 100 IV (09:35)
--- NOTE | 2025-09-17 12:38 | W.PN.HOSP.TC ---
Today's Communication/Plan
-
Assessment / Plan
Assessment / Plan
NAD
Scleral Anicteric
MMM
No JVD
CTABL
RRR, S1/S2
Soft, NT, ND, BS+
Warm, Dry
AAOx3
Calm
Left UPJ Stone with pyelonephritis
CT done in the ED shows 10mm stone at L UPJ with mild hydro / associated fat stranding along with CVA tenderness
S/p stent placement on 09/15 - POD 1 with Uro
DC IVF
Flomax
Strain urine
Uro following
DC Ctx
Started Vanc and ID added ampicillin as Bcx/Ucx growing enterococcus
GPC Bacteremia with enterococcus
Bcx x2 reordered, until cx negative
Follow up on sensititivies
Vanc dose per pharmacy
2d echo
ID consult
HTN
Continue antihypertensives
Crohn's Disease
No current GI complaint.
Continue sulfasalazine
Chronic Pain Syndrome
Continue hydrocodone prn
LDD
Continue hydrocodone prn
BPH
Tamsulosin as noted above
Follow with Urology at [facility] (Dr. Vargas)
Anticipated Discharge: > 48 hours
Subjective/Interval History
-
Date of Service: September 17, 2025
seen and examined. no new complaitns. no acute ovenright events
Objective Data
-
Labs:
Laboratory Results
09/17/25
07:58
WBC 6.3
Hgb 11.1 L
Hct 31.8 L
Plt Count 128 L
Sodium 135
Potassium 3.5
Chloride 106
Carbon Dioxide 26
BUN 6 L
Creatinine 0.6 L
Glucose 109 H
Calcium 8.5
Vital Signs:
Vital Signs
Temp Pulse Resp BP Pulse Ox
98.4 F 70 18 178/75 95
09/17/25 07:29 09/17/25 08:05 09/17/25 07:29 09/17/25 08:05 09/17/25 07:29
I&O
09/16/25 09/17/25 09/18/25
06:59 06:59 06:59
Intake Total 1580 / 1580 1468 / 1468
Output Total 1600 / 1600 2800 / 2800
Balance -20 / -20 -1332 / -1332
--- NOTE | 2025-09-17 13:29 | W.PN.ID1 ---
Date of Service
Date of Service: September 17, 2025
Today's Communication
Continue antibiotics. Await final culture sensitivities.
Assessment / Plan
Obstructive uropathy secondary to 10 mm stone
Left hydronephrosis
Suspected left pyelonephritis
Bacteremia with Enterococcus.
Crohn's disease
HTN
Hypothyroidism
MIRIAM
COPD
BPH
Recommendations:
Continue with empiric vancomycin for the present. Follow levels closely to prevent nephrotoxicity.
Continue ampicillin 2 gm IV q.6 hours.
Repeat blood cultures have been obtained; will continue to follow.
Await final susceptibility data of positive blood cultures to guide further antimicrobial selection and de-escalation.
Monitor white count and temperature curve.
Continue with supportive measures.
For echocardiogram.
����������������������������������������������������������
Chief Complaint
-: Bacteremia
Subjective / Review of Systems
Review of Systems: No Fever, No Chills and No Dysuria
Vital Signs / Physical Exam
Vital Signs
Vital Signs
Temp Pulse Resp BP Pulse Ox
98.4 F 70 18 178/75 95
09/17/25 07:29 09/17/25 08:05 09/17/25 07:29 09/17/25 08:05 09/17/25 07:29
Physical Exam
Constitutional: No Acute Distress, Comfortable and Non-toxic
Eyes: No Conjunctival Hemorrhage and Sclera Anicteric
Cardiovascular: S1/S2; Negative S3/S4
Pulmonary: Non Labored
Gastrointestinal: Soft, Non Tender and Non Distended
Extremities: Edema; Negative Cyanosis or Erythema
Neurological: Awake and Alert
Psychological: Calm
Objective Data
Lab Data
Lab Results
09/17/25 07:58
09/17/25 07:58
Estimated Creat Clear 110 ml/min 09/17/25 07:58
Lactic Acid 0.9 mmol/L (0.7-2.0) 09/15/25 02:12
Total Bilirubin 1.3 mg/dl (0.2-1.3) 09/14/25 23:20
AST 29 U/L (17-59) 09/14/25 23:20
ALT 17 U/L (0-50) 09/14/25 23:20
Alkaline Phosphatase 53 U/L (38-126) 09/14/25 23:20
Most recent labs reviewed.
Micro Results:
09/15/25 01:11 Urine Culture - Preliminary
Urine Enterococcus species
09/16/25 09:26 Blood Culture - Preliminary
Blood/Venous No Growth in 24 hours- Final report to follow
09/16/25 08:53 Blood Culture - Preliminary
Blood/Venous No Growth in 24 hours- Final report to follow
09/15/25 02:12 Blood Culture - Preliminary
Blood/Venous No Growth in 48 hours- Final report to follow
09/15/25 02:12 Blood Culture - Preliminary
Blood/Venous Enterococcus faecalis
Gram Stain - Preliminary
Imaging:
09/15/2025 CT abdomen/pelvis with IV contrast: 10 mm stone at the left ureteropelvic junction with associated mild left hydronephrosis and severe left perinephric stranding. No evidence of intestinal obstruction, bowel inflammatory process or
abscess formation. Please see full dictation for additional detail. Film personally viewed.
[2025-09-17 15:00] VITALS: BP 144/85
[2025-09-17] MEDS: VANCOCIN 530 MG IV (16:44)
[2025-09-17] MEDS: LIPITOR 40 MG PO (16:44)
[2025-09-17 20:20] VITALS: BP 142/61
[2025-09-17] MEDS: SENOKOT-S 1 TABLET PO (21:50)
[2025-09-17 23:39] VITALS: BP 176/68
[2025-09-18] MEDS: AMPICILLIN 108 MG IV ×4 (03:15→21:07)
[2025-09-18] MEDS: TYLENOL 650 MG PO (03:17)
[2025-09-18] MEDS: VANCOCIN 530 MG IV (06:01)
[2025-09-18 07:00] VITALS: BP 160/66
[2025-09-18 08:56] LABS: Hematocrit 32.5 % (39.0-52.0); Hemoglobin 11.2 g/dL (13.0-18.0); Mean Corp Hgb Conc. 34.5 g/dL (33.0-37.0); Mean Corpuscular Volume 92.6 fL (80.0-94.0); Platelet Count 152 10^3/uL (130-400); Red Cell Dist. Width 13.3 % (11.5-14.5)
[2025-09-18 09:45] LABS: Blood Urea Nitrogen 6 mg/dl (9-20); Calcium 8.9 mg/dl (8.4-10.2); Carbon Dioxide 28 mmol/L (22-30); Chloride 105 mmol/L (98-107); Estimated Creatinine Clearance 110 ml/min; Glucose 143 mg/dl (70-99); Potassium 3.2 mmol/L (3.5-5.1); Sodium 136 mmol/L (135-145); eGFR > 60.00
[2025-09-18] MEDS: AZULFIDINE 1000 MG PO ×3 (09:48→21:05)
[2025-09-18] MEDS: LASIX 40 MG PO (09:48)
[2025-09-18] MEDS: VITAMIN D3 (cholecalciferol) 50 MCG PO ×2 (09:49→20:43)
[2025-09-18] MEDS: FLOMAX 0.4 MG PO (09:49)
[2025-09-18] MEDS: COREG 25 MG PO ×2 (09:50→20:42)
[2025-09-18] MEDS: NORVASC 5 MG PO ×2 (09:50→20:43)
[2025-09-18] MEDS: CATAPRES 0.1 MG PO (09:50)
[2025-09-18] MEDS: DIOVAN 320 MG PO (09:50)
[2025-09-18] MEDS: ALDACTONE 100 MG PO (09:51)
--- NOTE | 2025-09-18 14:02 | W.PN.HOSP.TC ---
Today's Communication/Plan
-
Assessment / Plan
Assessment / Plan
NAD
Scleral Anicteric
MMM
No JVD
CTABL
RRR, S1/S2
Soft, NT, ND, BS+
Warm, Dry
AAOx3
Calm
Left UPJ Stone with pyelonephritis
CT done in the ED shows 10mm stone at L UPJ with mild hydro / associated fat stranding along with CVA tenderness
S/p stent placement on 09/15 - POD 1 with Uro
DC IVF
Flomax
Strain urine
Uro following
DC Ctx
Started Vanc and ID added ampicillin as Bcx/Ucx growing enterococcus
GPC Bacteremia with enterococcus
Bcx x2 reordered, until cx negative
Follow up on sensititivies
Vanc dose per pharmacy
2d echo
ID consult
HTN
Continue antihypertensives
Crohn's Disease
No current GI complaint.
Continue sulfasalazine
Chronic Pain Syndrome
Continue hydrocodone prn
LDD
Continue hydrocodone prn
BPH
Tamsulosin as noted above
Follow with Urology at [facility] (Dr. Vargas)
Anticipated Discharge: 24 - 48 hours
Subjective/Interval History
-
Date of Service: September 18, 2025
Seen and examined. No new complaints. No acute overnight events.
Objective Data
-
Labs:
Laboratory Results
09/18/25
08:36
WBC 5.8
Hgb 11.2 L
Hct 32.5 L
Plt Count 152
Sodium 136
Potassium 3.2 L
Chloride 105
Carbon Dioxide 28
BUN 6 L
Creatinine 0.5 L
Glucose 143 H
Calcium 8.9
Vital Signs:
Vital Signs
Temp Pulse Resp BP Pulse Ox
97.6 F 69 18 160/66 95
09/18/25 07:00 09/18/25 09:48 09/18/25 07:00 09/18/25 09:48 09/18/25 09:40
I&O
09/17/25 09/18/25 09/19/25
06:59 06:59 06:59
Intake Total 1468 / 1468 1040 / 1040
Output Total 2800 / 2800 2725 / 2725
Balance -1332 / -1332 -1685 / -1685
--- NOTE | 2025-09-18 14:42 | W.PN.ID1 ---
Date of Service
Date of Service: September 18, 2025
Today's Communication
Continue antibiotics.
Assessment / Plan
Obstructive uropathy secondary to 10 mm stone
Left hydronephrosis
Left pyelonephritis
Bacteremia with Enterococcus faecalis
Crohn's disease
HTN
Hypothyroidism
MIRIAM
COPD
BPH
Recommendations:
Isolate is ampicillin sensitive. Continue ampicillin 2 gm IV q.6 hours. Discontinue further vancomycin.
Repeat blood cultures no growth to date
Monitor white count and temperature curve.
Continue with supportive measures.
Await echocardiogram results.
If no valvular dysfunction seen, patient can be transition to oral ampicillin 1000 mg p.o. TID at the time of discharge, to continue through 09/29
����������������������������������������������������������
Chief Complaint
-: UTI and Bacteremia
Subjective / Review of Systems
Review of Systems: No Fever, No Chills and No Dysuria
Vital Signs / Physical Exam
Vital Signs
Vital Signs
Temp Pulse Resp BP Pulse Ox
97.6 F 69 18 160/66 95
09/18/25 07:00 09/18/25 09:48 09/18/25 07:00 09/18/25 09:48 09/18/25 09:40
Physical Exam
Constitutional: No Acute Distress, Comfortable and Non-toxic
Eyes: No Conjunctival Hemorrhage and Sclera Anicteric
Cardiovascular: S1/S2; Negative S3/S4
Pulmonary: Non Labored
Gastrointestinal: Soft, Non Tender and Non Distended
Extremities: Edema; Negative Cyanosis or Erythema
Neurological: Awake and Alert
Psychological: Calm
Objective Data
Lab Data
Lab Results
09/18/25 08:36
09/18/25 08:36
Estimated Creat Clear 110 ml/min 09/18/25 08:36
Lactic Acid 0.9 mmol/L (0.7-2.0) 09/15/25 02:12
Total Bilirubin 1.3 mg/dl (0.2-1.3) 09/14/25 23:20
AST 29 U/L (17-59) 09/14/25 23:20
ALT 17 U/L (0-50) 09/14/25 23:20
Alkaline Phosphatase 53 U/L (38-126) 09/14/25 23:20
Most recent labs reviewed.
Micro Results:
09/15/25 02:12 Blood Culture - Preliminary
Blood/Venous Enterococcus faecalis
Gram Stain - Preliminary
09/16/25 09:26 Blood Culture - Preliminary
Blood/Venous No Growth in 48 hours- Final report to follow
09/16/25 08:53 Blood Culture - Preliminary
Blood/Venous No Growth in 48 hours- Final report to follow
09/15/25 02:12 Blood Culture - Preliminary
Blood/Venous No Growth in 72 hours- Final report to follow
09/15/25 01:11 Urine Culture - Final
Urine Enterococcus faecalis
Imaging:
09/18/2025 ECHO (TTE): study pending
09/15/2025 CT abdomen/pelvis with IV contrast: 10 mm stone at the left ureteropelvic junction with associated mild left hydronephrosis and severe left perinephric stranding. No evidence of intestinal obstruction, bowel inflammatory process or
abscess formation. Please see full dictation for additional detail. Film personally viewed.
[2025-09-18 15:48] VITALS: BP 155/70
[2025-09-18] MEDS: LIPITOR 40 MG PO (17:06)
[2025-09-18] MEDS: SENOKOT-S 1 TABLET PO (21:05)
[2025-09-18 23:00] VITALS: BP 153/62
[2025-09-19] MEDS: AMPICILLIN 108 MG IV ×3 (03:51→15:22)
[2025-09-19 07:40] LABS: Hematocrit 33.7 % (39.0-52.0); Hemoglobin 10.9 g/dL (13.0-18.0); Mean Corp Hgb Conc. 32.3 g/dL (33.0-37.0); Mean Corpuscular Volume 96.3 fL (80.0-94.0); Platelet Count 162 10^3/uL (130-400); Red Cell Dist. Width 13.2 % (11.5-14.5)
[2025-09-19 08:09] LABS: Blood Urea Nitrogen 9 mg/dl (9-20); Calcium 9.0 mg/dl (8.4-10.2); Carbon Dioxide 30 mmol/L (22-30); Chloride 103 mmol/L (98-107); Estimated Creatinine Clearance 110 ml/min; Glucose 89 mg/dl (70-99); Potassium 3.3 mmol/L (3.5-5.1); Sodium 135 mmol/L (135-145); eGFR > 60.00
[2025-09-19 08:25] VITALS: BP 167/70
[2025-09-19] MEDS: LASIX 40 MG PO (09:32)
[2025-09-19] MEDS: FLOMAX 0.4 MG PO (09:32)
[2025-09-19] MEDS: AZULFIDINE 1000 MG PO ×2 (09:32→15:22)
[2025-09-19] MEDS: DIOVAN 320 MG PO (09:32)
[2025-09-19] MEDS: COREG 25 MG PO (09:33)
[2025-09-19] MEDS: VITAMIN D3 (cholecalciferol) 50 MCG PO (09:33)
[2025-09-19] MEDS: CATAPRES 0.1 MG PO (09:33)
[2025-09-19] MEDS: NORVASC 5 MG PO (09:33)
[2025-09-19] MEDS: ALDACTONE 100 MG PO (09:33)
--- NOTE | 2025-09-19 10:14 | W.PN.UPDATE ---
Update Note
Progress Note Update
09/15: s/p cystoscopy + left ureteral stent insertion.
Patient's current urologist is Dr. Vargas @[facility].
However, as he lives in the [facility], he wishes to transfer his care to [facility].
Plan:
- F/U w/ Dr. Morales in 2 weeks for preop visit to schedule definitive outpatient stone surgery
- Will plan for left ULS after repeat UCx negative (outpatient)
--- NOTE | 2025-09-19 13:23 | W.PN.ID1 ---
Date of Service
Date of Service: September 19, 2025
Today's Communication
Continue abx.
Assessment / Plan
Obstructive uropathy secondary to 10 mm ureteral stone
Left hydronephrosis
Left pyelonephritis
Bacteremia with Enterococcus faecalis
Crohn's disease
HTN
Hypothyroidism
MIRIAM
COPD
BPH
Recommendations:
Enterococcal isolate is ampicillin sensitive. Continue ampicillin 2 gm IV q.6 hours.
Repeat blood cultures no growth to date. ECHO without vegitation, although posterior mitral calcifications noted.
Monitor white count and temperature curve.
Continue with supportive measures.
With blood cultures clearing quickly and ECHO negative for vegitation, patient can be transition to oral ampicillin 1000 mg p.o. TID at the time of discharge, to continue through 09/29.
Would check repeat blood cultures ~2 weeks following completion of antibiotics.
����������������������������������������������������������
Chief Complaint
-: UTI and Bacteremia
Subjective / Review of Systems
Review of Systems: No Fever and No Chills
Vital Signs / Physical Exam
Vital Signs
Vital Signs
Temp Pulse Resp BP Pulse Ox
98.5 F 65 18 167/70 95
09/19/25 08:25 09/19/25 09:32 09/19/25 08:25 09/19/25 09:32 09/19/25 10:10
Physical Exam
Constitutional: No Acute Distress, Comfortable and Non-toxic
Eyes: No Conjunctival Hemorrhage and Sclera Anicteric
Cardiovascular: S1/S2; Negative S3/S4
Pulmonary: Non Labored
Gastrointestinal: Soft, Non Tender and Non Distended
Extremities: Edema; Negative Cyanosis or Erythema
Neurological: Awake and Alert
Psychological: Calm
Objective Data
Lab Data
Lab Results
09/19/25 07:02
09/19/25 07:02
Estimated Creat Clear 110 ml/min 09/19/25 07:02
Lactic Acid 0.9 mmol/L (0.7-2.0) 09/15/25 02:12
Total Bilirubin 1.3 mg/dl (0.2-1.3) 09/14/25 23:20
AST 29 U/L (17-59) 09/14/25 23:20
ALT 17 U/L (0-50) 09/14/25 23:20
Alkaline Phosphatase 53 U/L (38-126) 09/14/25 23:20
Most recent labs reviewed.
Micro Results:
09/16/25 09:26 Blood Culture - Preliminary
Blood/Venous No Growth in 72 hours- Final report to follow
09/16/25 08:53 Blood Culture - Preliminary
Blood/Venous No Growth in 72 hours- Final report to follow
09/15/25 02:12 Blood Culture - Preliminary
Blood/Venous No Growth in 4 days- Final report to follow
09/15/25 02:12 Blood Culture - Preliminary
Blood/Venous Enterococcus faecalis
Gram Stain - Preliminary
09/15/25 01:11 Urine Culture - Final
Urine Enterococcus faecalis
Imaging:
09/18/2025 ECHO (TTE): Normal left ventricular systolic function with jection fraction 62% by volumetric assesment and no regional wall motion abnormalities. Normal right ventricle size and function. Normal sized left atrium and right atrium.
Mild mitral valve regurgitation. Dense posterior mitral annular calcification. Compared to prior echo 11/12/22 there is no significant change.
09/15/2025 CT abdomen/pelvis with IV contrast: 10 mm stone at the left ureteropelvic junction with associated mild left hydronephrosis and severe left perinephric stranding. No evidence of intestinal obstruction, bowel inflammatory process or
abscess formation. Please see full dictation for additional detail. Film personally viewed.
[2025-09-19 15:34] VITALS: BP 151/57
--- NOTE | 2025-09-19 15:34 | CM ---
CM following for discharge planning needs.
Patient has been on IV abx, but has improved to the point of being converted to PO abx.
Patient has been ambulatory in his room, no O2 needs, able to manage his own care.
Plan: Discharge to home with no identified needs.
--- NOTE | 2025-09-19 16:22 | W.DCSUMMARY ---
Discharge Summary
Discharge Data
Date of Admission: 09/15/25
Date of Discharge: 09/19/25
-
Pending Results: No
Hospital Course
80y M with PMH significant for hypertension, Crohn's disease and BPH
Presented with left flank pain and abdominal pain. CT abdomen/pelvis showed 10mm stone at the L UPJ with mild hydronephrosis and strainding. Started on iv antiobiotics and ivf along with flomax. Evaluated by urology and taken to the OR for stent
placement and outpatient urology follow up for definitive stone treatment. Unfortunatly, hospitalization complicated by enterococcus bactermia. Antibiotics where changed to vancomycin and ampicillin. Infectious diseases evaluated. Repeat cultures
were negative along with a 2d echocardiogram that did not show vegatation on the heart valves. Infectious diseases further recommeneded de-esclation of antiobiotics from IV to PO amoxacillin 1000mg TID until 09/29/25. WIll need continue outpatient
follow up with PCP and Urology.
CXR
IMPRESSION:
Relative paucity of bowel gas, no gross findings to suggest intestinal obstruction.
No free air.
Approximate 1 cm calcific density in the left upper quadrant which could represent a left renal calculus or calculus at the left ureteropelvic junction.
CTAP
IMPRESSION:
1. 10 mm stone at the left ureteropelvic junction, associated with mild left hydronephrosis and severe left perinephric stranding.
2. No evidence of intestinal obstruction, bowel inflammatory process, or abscess formation.
Xray Abdo
FINDINGS and IMPRESSION: Intraoperative spot views were submitted, demonstrating left ureteral JJ stent, components in expected position. For further information, please see the operative report.
2d echo
SUMMARY
1. Normal left ventricular systolic function with jection fraction 62% by volumetric assesment and no regional wall motion abnormalities.
2. Normal right ventricle size and function.
3. Normal sized left atrium and right atrium.
4. Mild mitral valve regurgitation. Dense posterior mitral annular calcification.
5. Compared to prior echo 11/12/22 there is no significant change.
Seen and examined on the day of discharge which was 09/19. No new complaints. No acute overnight events
NAD
Scleral Anicteric
MMM
No JVD
CTABL
RRR, S1/S2
Soft, NT, ND, BS+
Warm, Dry
AAOx3
Calm
More than 30 minutes spent in discharge including
Final examination of the patient
Summarizing hospital stay
Instructions for continuing care to all relevant caregivers
Preparation of discharge records, prescriptions, and referral forms
Total time spent (in minutes): 33mins
Discharge Plan
-
Patient Disposition: Home (Routine Discharge)
Discharge Diagnosis/Procedures: Pyelonephritis
Enterococcus bacteremia
Renal stone
Condition: Good
Diet: As tolerated
Activity: As tolerated
Activity Restrictions/Additional Instructions:
Presented with left flank pain and abdominal pain. CT abdomen/pelvis showed 10mm stone at the L UPJ with mild hydronephrosis and strainding. Started on iv antiobiotics and ivf along with flomax. Evaluated by urology and taken to the OR for stent
placement and outpatient urology follow up for definitive stone treatment. Unfortunatly, hospitalization complicated by enterococcus bactemia. Antibiotics where changed to vanco,ycin and ampicillin. Infectious diseases evaluated. Repeat cultures
were negative along with a 2d echocardiogram that did not show vegatation on the heart valves. Infectious diseases further recommeneded de-esclation of antiobiotics from IV to PO amoxacillin 1000mg TID until 09/29/25. WIll need continue outpatient
follow up with PCP and Urology.
CXR
IMPRESSION:
Relative paucity of bowel gas, no gross findings to suggest intestinal obstruction.
No free air.
Approximate 1 cm calcific density in the left upper quadrant which could represent a left renal calculus or calculus at the left ureteropelvic junction.
CTAP
IMPRESSION:
1. 10 mm stone at the left ureteropelvic junction, associated with mild left hydronephrosis and severe left perinephric stranding.
2. No evidence of intestinal obstruction, bowel inflammatory process, or abscess formation.
Xray Abdo
FINDINGS and IMPRESSION: Intraoperative spot views were submitted, demonstrating left ureteral JJ stent, components in expected position. For further information, please see the operative report.
2d echo
SUMMARY
1. Normal left ventricular systolic function with jection fraction 62% by volumetric assesment and no regional wall motion abnormalities.
2. Normal right ventricle size and function.
3. Normal sized left atrium and right atrium.
4. Mild mitral valve regurgitation. Dense posterior mitral annular calcification.
5. Compared to prior echo 11/12/22 there is no significant change.
Referrals:
Costa Finnegan MD [Family Provider, Internal Medicine]
Prescriptions:
New
tamsulosin 0.4 mg Capsule
0.4 mg PO DAILY Qty: 30 0RF
amoxicillin 500 mg capsule
1,000 mg PO TID Qty: 60 0RF
Continued
carvedilol [Coreg] 25 MG tablet
25 mg PO BID
sulfasalazine 500 MG tablet
1,000 mg PO TID
hydrocodone-acetaminophen 1 EACH tablet
1 ea PO TIDPRN PRN (Reason: pain)
aspirin 81 MG tablet,chewable
81 mg PO DAILY
cholecalciferol (vitamin D3) 2,000 UNITS tablet
2,000 unit PO BID
furosemide 40 mg Tablet
40 mg PO DAILY
atorvastatin 40 mg Tablet
40 mg PO QPM
clonidine HCl 0.1 mg Tablet
0.1 mg PO DAILY
cetirizine 10 mg Tablet
10 mg PO DAILY
spironolactone 100 mg Tablet
100 mg PO DAILY
sennosides-docusate sodium [Stool Softener-Stimulant Laxat] 8.6-50 mg Tablet
1 tab-cap PO HS
valsartan 320 mg Tablet
320 mg PO DAILY
amlodipine [Norvasc] 5 mg tablet
5 mg PO BID
Discharge Orders:
Discharge Patient (As Directed); Ordered 09/19/25
Ordered By: Constantino Frazier
Discharge Date and Time
Print Language: ITALIAN
== END 2025-09-19 16:53 | disposition home or self-care (01) | DRG 660 ==
LOC: 4 EAST ACU 03:28
PROVIDERS: Surgery; ADMITTING PHYSICIAN Hospitalist; ATTENDING PHYSICIAN Hospitalist; CONSULT PHYSICIAN Internal Medicine Infectious Disease; EMERGENCY PHYSICIAN Emergency Medicine; FAMILY PHYSICIAN Internal Medicine
PROC: 0T778DZ Dilation of Left Ureter with Intraluminal Device, Via Natural or Artificial Opening Endoscopic (ICD-10-PCS; 2025-09-15)
DX: N13.6 Pyonephrosis (principal); K50.90 Crohn's disease, unspecified, without complications; N20.2 Calculus of kidney with calculus of ureter; I10 Essential (primary) hypertension; E03.9 Hypothyroidism, unspecified; G89.4 Chronic pain syndrome; Z79.891 Long term (current) use of opiate analgesic; Z87.891 Personal history of nicotine dependence
CPT/HCPCS: 74018; 74022; 74177; 76000; 80048; 80053; 81003; 81015; 83605; 83690; 84484; 85025; 85027; 87040; 87077; 87086; 87154; 87186; 87205; 93005; 93306; 96361; 96374; 96375; 96376; 99291; Q9967

== ENCOUNTER 2025-10-13 05:48 | Day surgery (SDC) | payer MEDICARE, OTHER, SELFPAY ==
[2025-10-13 06:44] VITALS: BMI 32.2
[2025-10-13 06:45] VITALS: BMI 32.2
[2025-10-13 06:48] VITALS: BP 130/62
[2025-10-13] MEDS: NORMOSOL-R/PLASMALYTE-A 1000 IV (07:09)
[2025-10-13 08:33] VITALS: BP 130/62; BP 159/56
[2025-10-13 08:45] VITALS: BP 148/55
[2025-10-13] MEDS: DETROL LA 4 MG PO (08:56)
[2025-10-13 09:00] VITALS: BP 149/58
== END 2025-10-13 10:04 | disposition home or self-care (01) ==
LOC: SDS 05:48
PROVIDERS: ATTENDING PHYSICIAN Surgery
DX: N20.1 Calculus of ureter (principal); N40.0 Benign prostatic hyperplasia without lower urinary tract symptoms; Z98.890 Other specified postprocedural states; Z87.440 Personal history of urinary (tract) infections
CPT/HCPCS: 52356; 74018; 76000; A4300; C1894; C2617

== ENCOUNTER → 2025-10-16 07:57 | Outpatient (REF) | payer MEDICARE, OTHER, SELFPAY ==
[2025-10-16 10:01] LABS: Hematocrit 36.3 % (39.0-52.0); Hemoglobin 11.8 g/dL (13.0-18.0); Mean Corp Hgb Conc. 32.5 g/dL (33.0-37.0); Mean Corpuscular Volume 92.6 fL (80.0-94.0); Platelet Count 157 10^3/uL (130-400); Red Cell Dist. Width 13.1 % (11.5-14.5)
== END ==
LOC: HWLAB 07:57
PROVIDERS: ATTENDING PHYSICIAN Specialist; FAMILY PHYSICIAN Internal Medicine
DX: R78.81 Bacteremia (principal); B95.2 Enterococcus as the cause of diseases classified elsewhere; N20.0 Calculus of kidney; I10 Essential (primary) hypertension
CPT/HCPCS: 36415; 85027; 87040